=== PATIENT | male | born 1965 | race Caucasian/White ===

== ENCOUNTER 2017-10-14 10:57 | Outpatient (REF) | payer SELFPAY ==
[2017-10-17 10:11] LABS: HBs Antibody, Quant <3.1 mIU/mL; Hepatitis B Surface Ab Negative
[2017-10-17 10:41] LABS: Varicella IgG Antibody Positive
[2017-10-17 14:18] LABS: TB Interpretation Negative (NEGAT)
== END 2017-10-14 11:17 ==
LOC: LBO 10:57
PROVIDERS: PCP Nurse Practitioner Family; Visit Provider Nurse Practitioner Family
DX: Z11.1 Encounter for screening for respiratory tuberculosis (principal); Z01.84 Encounter for antibody response examination; Z02.1 Encounter for pre-employment examination
CPT/HCPCS: 36415; 86706; 86787; 86480

== ENCOUNTER 2021-02-23 02:14 | Outpatient (REF) | payer SELFPAY ==
[2021-02-24 09:06] LABS: HBs Antibody, Quant 174.6 mIU/mL (See Note); Hepatitis B Surface Ab Positive (See Note)
[2021-02-24 09:15] LABS: Hepatitis B Surface Ag Negative (Negative)
== END 2021-02-23 02:15 | disposition home or self-care (01) ==
LOC: LBO 02:14
PROVIDERS: PCP Nurse Practitioner Family; Visit Provider Nurse Practitioner Family
DX: Z02.1 Encounter for pre-employment examination (principal)
CPT/HCPCS: 36415; 86706; 87340

== ENCOUNTER 2024-02-22 09:27 | Emergency (ER) | payer OTHER, SELFPAY ==
[2024-02-22 09:36] VITALS: BP 181/92; PULSE 79; RESP 14; TEMP 36.6; O2SAT 97
--- NOTE | 2024-02-22 09:44 | ED.GENADUL_ITS ---
Discharge Plan Disposition Patient Disposition: Home Condition: Stable Discharge Details Clinical Impression: Cellulitis of right lower leg Primary Care Provider: None,None ED Provider: Livan Guillaume Home Meds and New Rx's Prescriptions: New cephalexin 500 mg capsule 500 mg PO QID 10 Days Qty: 40 0RF Continued (DME) Blood Glucose Test 1 EACH strip 1 ea Miscellaneous DAILY Qty: 90 Rx Instructions: PLEASE DISPENSE [employer] IS COVERED BY PT'S INSURANCE Dx: E11.9 T2DM to maintain HbA1c less than 7% aspirin [Aspir-81] 81 MG tablet,delayed release (DR/EC) 81 mg PO DAILY Atorvastatin Calcium 10 MG tablet 10 mg PO DAILY Qty: 90 3RF metformin 500 MG tablet 500 mg PO DAILY Qty: 90 3RF lisinopril-hydrochlorothiazide 1 EACH tablet 1 ea PO DAILY Qty: 90 3RF cholecalciferol (vitamin D3) 1,000 UNIT tablet 1,000 unit PO DAILY Qty: 90 3RF Discharge Instructions Instructions: Cephalexin, Cellulitis (Skin Infection), Adult ED Additional Instructions: You were seen in the emergency department for the cellulitis of your right lower leg due to a cut. I am starting you on an antibiotic called cephalexin sent to the pharmacy here at the hospital, please take it as directed, you should see significant improvement by day 3, if you develop fever or are not improving by day 3 please return to the ED to be reevaluated, please return for any severe increase in your leg swelling especially with signs of neurovascular compromise to the distal right lower leg. Please follow-up with your primary care provider, your blood pressure is high today and you have been on lisinopril in the past and may need to go back on this medication. Discharge Data Discharge Date/Time-TO BE ENTERED AT DEPARTURE: 02/22/24 10:01 HPI General Date/Time Provider Initiated Documentation: 02/22/24 09:44 . HPI Narrative: 58 year-old male presents to ED today by POV/ambulating with a chief complaint of cut to R green, now having some redness distal to the cut over the past few days. Quality described as mild redness, no radiation to fever, fluctuance swelling, purulent drainage, red streaking up the leg. Severity is described as mild. Palliating factors include nothing specific attempted. Provoking factors include nothing specific. 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 Patient not anticoagulated. Related Data Home Medications ?Medication ?Instructions ?Recorded ?Confirmed blood sugar diagnostic (Blood #90 strips 08/22/15 02/22/24 Glucose Test strips) aspirin 81 mg tablet,delayed 81 mg PO DAILY 12/19/15 02/22/24 release (Aspir-) cholecalciferol (vitamin D3) 25 1,000 unit PO DAILY #90 tab-caps 12/20/16 02/22/24 mcg (1,000 unit) tablet lisinopril 20 1 ea PO DAILY #90 tab-caps 12/20/16 02/22/24 mg-hydrochlorothiazide 25 mg tablet metformin 500 mg tablet 500 mg PO DAILY #90 tab-caps 12/20/16 02/22/24 cephalexin 500 mg capsule 500 mg PO QID cellulitis 10 days 02/22/24 #40 caps Previous Rx's ?Medication ?Instructions ?Recorded cholecalciferol (vitamin D3) 25 1,000 unit PO DAILY #90 tab-caps 12/20/16 mcg (1,000 unit) tablet lisinopril 20 1 ea PO DAILY #90 tab-caps 12/20/16 mg-hydrochlorothiazide 25 mg tablet metformin 500 mg tablet 500 mg PO DAILY #90 tab-caps 12/20/16 cephalexin 500 mg capsule 500 mg PO QID cellulitis 10 days 02/22/24 #40 caps Allergies Allergy/AdvReac Type Severity Reaction Status Date / Time venom-honey bee (bee venom Allergy Mild Other (See Unverified 02/22/24 09:42 (honey bee)) Comment) metoprolol AdvReac constipatio Unverified 02/22/24 09:41 n General Stated Complaint: Cellulitis LASHAY: 3 Review of Systems All systems reviewed & are unremarkable except as noted in HPI and below Exam Narrative Exam Narrative: GENERAL APPEARANCE: Well-nourished, non-toxic, awake and alert, atraumatic, no acute distress. SKIN: Warm, pink, dry, minor healing cut to the anterior proximal green of the right lower extremity, 3 cm distal to this there is some macular erythema diffusely to green with warmth to touch without fluctuance swelling or purulent drainage consistent with cellulitis, no lymphadenitis HEAD: Normocephalic, atraumatic, normal hair distribution for gender/age. EYES: Normal conjunctiva, no exudates on lids/lashes. ENT: Nares patent, no circumoral cyanosis, no facial swelling NECK: Supple, trachea midline, painless cervical ROM. LUNGS/CHEST: Non-labored respirations, normal A/P diameter, symmetrical expansion, no chest wall deformity HEART (CV/PV): No peripheral edema, no JVD. ABDOMEN: Soft, non-distended, no guarding. MSK: Normal ROM, no swelling/deformity to bilateral UEs or LEs, moving all extremities without weakness, no cyanosis, spine midline without tenderness, normal curvature. NEURO: Mental Status AAOx4 - alert to person, place, time, events No facial droop, no forehead involvement. Motor: No focal weakness - strength 5/5 in bilateral UEs and LEs, proximal and distal, symmetric. Sensory: sensation intact to light touch globally. Gait normal: patient ambulated without ataxia into ED room. PSYCH: euthymic, cooperative, pleasant, appropriate speech Course Vital Signs Vital signs: Vital Signs Temperature 36.6 C 02/22/24 09:36 Pulse 79 02/22/24 09:36 Respiratory Rate 14 02/22/24 09:36 Blood Pressure 181/92 H 02/22/24 09:36 Pulse Oximetry 97 02/22/24 09:36 Temperature 36.6 C 02/22/24 09:36 Temperature Source Oral 02/22/24 09:36 Pulse 79 02/22/24 09:36 Respiratory Rate 14 02/22/24 09:36 Blood Pressure 181/92 H 02/22/24 09:36 Blood Pressure Position Sitting 02/22/24 09:36 Pulse Oximetry 97 02/22/24 09:36 Oxygen Delivery Method Room Air 02/22/24 09:36 Oxygen Flow Rate 0 02/22/24 09:36 Pain Level 5 02/22/24 09:36 Medical Decision Making This dictation utilizes [id number] dictation software and may contain unedited grammatical errors. 58 year-old male presents to ED today by POV/ambulating with a chief complaint of cut to R green, now having some redness distal to the cut over the past few days. Quality described as mild redness, no radiation to fever, fluctuance swelling, purulent drainage, red streaking up the leg. Severity is described as mild. Palliating factors include nothing specific attempted. Provoking factors include nothing specific. Events leading up to the incident/Associated Symptoms: Patient works here in the [employer] department. Patients' medical history: History of diabetes mellitus but was able to correct his A1c with lifestyle choices, MICHELLE, atrial fibrillation, elevated blood pressure. Family and social history: Works here at the [employer] department. Pertinent exam findings / vital signs include minor healing cut to the anterior proximal green of the right lower extremity, 3 cm distal to this there is some macular erythema diffusely to green with warmth to touch without fluctuance swelling or purulent drainage consistent with cellulitis, no lymphadenitis, nontoxic and afebrile. Differential / pathologies of concern include cellulitis, unlikely sepsis. Diagnostic studies of: -None, discussed possibility for labs with the patient he would like to trial antibiotic for relief, he will return if any worsening for laboratory workup. Interventions of: -Rx for cephalexin. ED Course/Assessment/Plan: 58-year-old male has a mild right lower extremity cellulitis, wants to trial antibiotics for relief prior to any laboratory workup, he will return for any acute worsening with fever and lymphadenitis, recommend he follow-up with his PCP about his blood pressure. Findings not consistent with severe cellulitis, circumferential cellulitis, abscess, sepsis. Disposition of cellulitis of right lower leg. Patient verbalized understanding of the plan and return to ED criteria and engaged in shared decision making. Medical Records Medical records reviewed: Yes I reviewed the patient's medical records. Quality:[facility] Health Related Social Needs: No Data to Display PFSH All Active Problems (Updated 02/22/24 @ 09:53 by CORNELIA Mccord) Cellulitis of right lower leg (Acute) Employee exposure to body fluids (Acute) Encounter for screening for other viral diseases (Acute) Medical History (Updated 02/22/24 @ 09:53 by CORNELIA Mccord) HTN (hypertension) Adult BMI > 30 Nephrolithiasis L Type 2 diabetes mellitus Hepatic steatosis Sleep apnea Diverticulosis Surgical History Ureteroscopy, EHL, or Laser Lithotripsy (10/30/09) Dr Stoney Garcia ureteral stent Colonoscopy w/ Bx (10/09/15) Appendectomy (~2008) Family History Mother Essential hypertension Father Essential hypertension Atrial fibrillation Sister No problems noted. Sister No problems noted. Brother No problems noted. Social History Smoking/Tobacco Use Status: Never Smoking risk assessment performed?: Yes Alcohol Intake: current Alcohol Intake frequency: a few times a week Drug use: Never Substance use type: does not use Do you feel safe at home: Yes Do you feel safe in your relationship?: Yes
[2024-02-22 09:47] VITALS: BP 181/92; PULSE 79; RESP 14; TEMP 36.6; O2SAT 97
[2024-02-22 09:59] VITALS: BP 181/92
== END 2024-02-22 10:01 | disposition home or self-care (01) ==
LOC: ER 10:10
PROVIDERS: Emergency Provider Physician Assistant
DX: L03.115 Cellulitis of right lower limb (principal); I10 Essential (primary) hypertension; E11.9 Type 2 diabetes mellitus without complications
CPT/HCPCS: 99283

== ENCOUNTER 2024-02-23 18:54 | Observation (INO) | payer OTHER, SELFPAY ==
[2024-02-23 18:59] VITALS: BP 136/81; PULSE 90; RESP 19; TEMP 36.6; O2SAT 94
--- OUTSIDE RECORDS SUMMARY | 2024-02-23 19:15 | XMS_ITS | Clinical Summary ---
Author Organization [facility] Address [address] [place] [address] Care Team Providers Care Display Director Name Role Phone Jason Maya MD Primary Care Provider Unav ailable Social History Tobacco Use Types Packs/Day Years Used Date Smoking Tobacco: Never Assessed Sex and Gender Information Value Date Recorded Sex Assigned at Not on file Legal Sex Male 18:34 EST Gender Identity Not on file Sexual Orientation Not on file Plan of Treatment Health Maintenance Due Date Last Done Comments Hepatitis C Screen 1965 Hepatitis B Vaccine (1 of 3 - 19+ 3-dose series) 09/23 COVID-19 Vaccine ( season) 2023 Care Teams Display Director Relationship Specialty Start Date End Date Jason Maya MD PCP - General 12/23/14
--- OUTSIDE RECORDS SUMMARY | 2024-02-23 19:15 | XMS_ITS | Referral Summary ---
Author Organization [facility] Address [address] [place] [address] Care Team Providers Care Configuration Analyst Name Role Phone Jason Maya MD Primary Care Provider Unav ailable Social History Tobacco Use Types Packs/Day Years Used Date Smoking Tobacco: Never Assessed Sex and Gender Information Value Date Recorded Sex Assigned at Not on file Legal Sex Male 18:34 EST Gender Identity Not on file Sexual Orientation Not on file Plan of Treatment Not on file Care Teams Configuration Analyst Relationship Specialty Start Date End Date Jason Maya MD PCP - General 12/23/14
--- OUTSIDE RECORDS SUMMARY | 2024-02-23 19:15 | XMS_ITS | Encounter Summary ---
Author Organization [facility] Address [address] [place] [address] Care Team Providers Care Pool Servicer Name Role Phone Unavailable Primary Care Provider Unavailabl e Encounter Details Date Type Department Care Team (Late st Contact Info) Description 05/09/2008 Before PRISM Converted Visit ([facility]) [facility] - [facility] conversion [address] [place] [address] Kenroy Magana MD [address] [place] [address] Social History Tobacco Use Types Packs/Day Years Used Date Smoking Tobacco: Never Assessed Sex and Gender Information Value Date Recorded Sex Assigned at Not on file Legal Sex Male 18:34 EST Gender Identity Not on file Sexual Orientation Not on file documented as of this encounter Plan of Treatment Not on file documented as of this encounter Procedures Procedure Name Priority Date/Time Associated Diagnosis Comments SURGICAL PATHOLOGY Routine 05/09/2008 0:00 EDT documented in this encounter Results * SURGICAL PATHOLOGY (05/09/2008 0:00 EDT) Pathology Report: SURGICAL PATHOLOGY REPORT ? Reports generated via electronic interface contain original data; ? however they are lacking the format of the original report. ? Caution should be taken when reading/interpreti ng unformatted reports. ? Name: ? PASTULA, GRAY ? Accession #: ? [id number] ? : ? 1965 (Age: 42) ??M ? Collect Date: ? 05/09/2008 ? Location: ? [facility] ? Receive Date: ? 05/10/2008 ? Provider: KENROY MAGANA MD ? Copy to: MAY L EARL MD ? JOSSELINE ZIOBROWSKI MD ? Final Pathologic Diagnosis: ? Soft tissue, intraabdominal, excision biopsy: ? - Adipose tissue with organizing acute and chronic serositis. ??See comment. ? Comment: ? The specimen was examined by two different prosectors and no appendix was ?? identified. ??These findings were discussed with Dr. Kenroy Magana who felt ?? this correlated with the clinical picture. (Dr. Page)/m ? Document reviewed and electronically signed by: ? Júnior Peters MD ? Report ??Date: 05/14/2008 17:16 ? By the signature above, the attending physician certifies that he/she has ? personally conducted a gross and/or microscopic examination of the described ? specimens and rendered or confirmed the above diagnosis. ? Specimen(s) Received: ? Appendix ? Clinical History: ? Abd pain ? Gross Description: ? Received in formalin labelled Pastula, Gray and appendix are two ? fragments of ruggiero-yellow lobular adipose tissue with patchy hemorrhage and ? regions of fibrinopurulent exudate. ??These fragments measure 5.0 x 3.0 x 1.2 cm and 4.8 x 2.0 x 1.2 cm. ??No definitive appendix is identified and serial ? sectioning through the fat fails to reveal any lumen. ??At one aspect of one of ?? the fragments, there is a 1.5 x 0.5 x 0.3 cm area of ruggiero-white firm tissue. ? The resection margins around this area are black inked. ??Two tour sales representative ? sections are submitted in one cassette. ??(Dr. House)/lissett ? End of Report ? TERRY BRISENO 05/09/2008 05/10/2008 8:3 9 EDT us Kenroy Magana MD PATHOLOGY ORDERABLES Final Result Performing Organization Address City/State/[facility] Co de Phone Number [facility] [address] [phone] documented in this encounter Visit Diagnoses Not on filedocumented in this encounter
--- OUTSIDE RECORDS SUMMARY | 2024-02-23 19:15 | XMS_ITS | Encounter Summary ---
[facility] Address [facility] [place] [address] Care Team Providers Care Booth Supervisor Name Role Phone Ahmet Erickson MD Primary Care Provider U navailable Reason for Visit * Consultation (Routine) - Closed Specialty Diagnoses / Procedures Referred By Contac t Referred To Contact Sleep Center Diagnoses MICHELLE (obstructive sleep apnea) Snoring Daytime sleepiness Procedures PRG POLYLSOM 6+ YRS SLEEP W CPAP W 4+ ADDL ESTHELA ATTND Lexis Mckinnon, REA [facility] [place] [address] [facility] Sleep Medicine [address] [place] [address] Referral ID Status Reason Start Date Expiration Date V isits Requested Visits Authorized [id number] Closed Test Only 11/06/2015 11/05/2016 1 1 Encounter Details Date Type Department Care Team (Late st Contact Info) Description 12/01/2015 8:30 PM EDT Procedure visit [facility] [address] [place] [id number] Jeaneth Gutiérrez MD [facility] [place] [address] MICHELLE (obstructive sleep apnea) (Primary Dx) Social History Tobacco Use Types Packs/Day Years Used Date Smoking Tobacco: Never Alcohol Use Standard Drinks/Week Comments Yes 14 (1 standard drink = 0.6 oz pu re alcohol) Few cans of beer per night Sex and Gender Information Value Date Recorded Sex Assigned at Not on file Gender Identity Not on file Sexual Orientation Not on file documented as of this encounter Progress Notes * Jeaneth Gutiérrez MD - 12/01/2015 8:30 PM EDT Images from the original note were not included. Overnight Polysomnogram Report - PAP Titration Trial History Of Present Illness: Roland Gage was referred for a full night CPAP titration study inthe setting of known severe MICHELLE, diagnosed in 2005, who currently is having issues with equipment failure. Notes suggest he was using CPAP 13cm for many years with good effect until more recently. Polysomnography: The patient's sleep was evaluated for one night at the [facility]. Sleep was monitored in accordance with recommended AASM guidelines. The recording also included oral/nasal airflow, chest and abdominal respiratory effort, nasal pressure, single channel EKG, intercostalEMG, bilateral tibialis EMG, and oxygen saturation (by pulse oximeter). Type of Positive Pressure Utilized: CPAP Report - Sleep/EEG: CPAP titration was performed from 22:22 to 6:00 yielding a total sleep time of 393 minwith all stages of sleep seen. Sleep efficiency was mildly reduced. REM accounted for 23% of TST. He slept lateral and supine. No major EEG abnormalities were noted. - Respiratory: CPAP was titrated from a pressure of 6cm to 9cm. Events were generally very limited in NREM sleep. Ongoing evidence of upper airway obstruction and cyclic oxygen desaturations were noted in REM sleep, improved as the pressures increased. On the final pressure of 9 cm, the residual AHI was 4.8 with a min SpO2 of 87% observed. The mask used was a Wisp nasal size large without chinstrap. Intermittent elevations in leak (prolonged but limited to 5-15 lpm increase) were seen - it is unclear if this was due to mouth opening ormask leak. - EKG: Normal sinus rhythm. - EMG: Unremarkable - COMMENTS: Head of bed: flat Technical quality of the study: good Post study questionnaire: The patient reported sleeping better and feeling slightly better on the morning after testing. Assessment: Roland Gage is a 50 yo male who presents for a CPAP titration in the setting of known severe MICHELLE. CPAP of 9cm resolved most of the obstructive events with some occasional events noted in REM supine sleep. A nasal mask was used during the night; leaks were generally well controlledwith some increases noted at time (unclear if due to mask or mouth opening.) No chinstrap was applie d. Moving forward, I would favor a trial of AUTOCPAP 9 - 16cm with the mask of his preference. Lower pressures could be considered if he has any tolerance issues. Recommendations: AUTOCPAP 9 - 16cm with mask of his preference +/- chinstrap; Lower pressures could be considered if there is any report of pressure intolerance. Follow up in the CPAP clinic to assess his response to the new equipment about 4-6 weeks after set up. * I called and left uJde a detailed message on his home line about the study results. Orders will be forwarded and follow up scheduled. Jeaneth Gutiérrez MD [facility] REPORT of TITRATION Polysomnography Patient Name: Roland Gage Study Date: 12/01/2015 Age & Sex: 50 y.o. Male Height: 5'11.5 Date of : 1965 Weight: 257.8 lbs BMI: 35.5 Referring Provider: Recording Technologist: ZACK ARRIAZA Scoring Technologist: ZACK MANN Sleep Fellow: Sleep Specialist: Scoring Technologist Comments: ECG: NSR Ectopy: PVC Description of Study: Diagnostic polysomnography was performed utilizing frontal, central & occipital EEG, EOG, submentalis EMG, oronasal thermocouple, nasal pressure, ECG, thoracic and abdominalinductance plethysmography, right and left anterior tibialis EMG, snore sensor, and pulse oximetry according to AASM established guidelines. Study Details & Sleep Architecture Diagnostic Start Time (Lights Off): 22:22:57 Total Recording Time: 458.0 min Diagnostic End Time (Lights On): 06:00:58 Total Sleep Time (minutes): 393.0 Total Num. of Stage Shifts: 78 Total Sleep Time (hrs:min): 6:33.0 Total Num. of Awakenings: 17 Sleep Onset Latency: 14.0 min Total Num. of Trans. to N1: 20 Sleep Efficiency: 85.8% Total Num. of REM Periods: 6 Stage Results: Time (minutes) %TST Latency (minutes) WASO: 51.0 - - N1: 25.5 6.5 0.0 N2: 208.0 52.9 2.5 N3: 68.5 17.4 35.0 REM: 91.0 23.2 61.5 55.5 (minus wake) Arousal Counts: NREM REM Total Spontaneous: 62 (12.3/hr) 20 (13.2/hr) 82 (12.5/hr) Sum of All Arousals: 71 (14.1/hr) 25 (16.5/hr) 96 (14.7/hr) Spontaneous arousals include only EEG arousals not associated with a respiratory event or PLM. Body Position: Supine Non-Supine Non-REM: 146.5 min 155.5 min REM: 63.5 min 27.5 min Total Sleep: 210.0 min (53.4%) 183.0 min (46.6%) Respiratory Events Apneas Obstructive Mixed Central Total Apneas Total Count: 0 0 0 0 Mean Duration (sec): 0 0 0 - Longest Duration (sec): 0 0 0 - Index (REM/NREM): 0.0 / 0.0 0.0 / 0.0 0.0 / 0.0 - Index (Sup./Non-Sup.): 0.0 / 0.0 0.0 / 0.0 0.0 / 0.0 - Index (Total): 0.0 0.0 0.0 0.0 Hypopneas & RERAs Hypopnea Definitions: Hypopnea* CMS Hypopnea 3% desat nancie. Hypopneas All RERA Total Count: 7 40 47 0 Mean Duration (sec): 30.2 22.6 - 0 Longest Duration (sec): 60.2 38.8 - 0 Index (REM/NREM): 4.6 / 0.0 15.2 / 3.4 19.8 / 3.4 0.0 / 0.0 Index (Sup./Non-Sup.): 0.9 / 1.3 9.4 / 2.3 10.3 / 3.6 0.0 / 0.0 Index (Total): 1.1 6.1 7.2 0.0 *CMS-defined hypopneas include only hypopneas with a >=4% oxygen desaturation. Includes hypopneas with an arousal or with a 3%-4% desaturation. CMS Hypopneas not included. Periodic Breathing Total Sleep Time Time (minutes) 0.0 Time (%Sleep Time) 0.0 AHI: Includes all apneas & all hypopneas associated with an arousal or a >= 3% desaturation. Supine Non-Sup. REM NREM Total Count: 36 11 30 17 47 Index (events/hr): 10.3 3.6 19.8 3.4 AHI = 7.2 CMS AHI: Includes all apneas & only hypopneas associated with a >= 4% desaturation. Supine Non-Sup. REM NREM Total Count: 3 4 7 0 7 Index (events/hr): 0.9 1.3 4.6 0.0 CMS = 1.1 Obstructive AHI: Includes obstructive & mixed apneas as well as all hypopneas. Excludes centralapneas and RERAs. Supine Non-Sup. REM NREM Total Count: 36 11 30 17 47 Index (events/hr): 10.3 3.6 19.8 3.4 OAHI = 7.2 RDI: Includes all apneas, all hypopneas, all RERAs, and all ???Unsure??? events. Supine Non-Sup. REM NREM Total Count: 36 11 30.0 17.1 47 Index (events/hr): 10.3 3.6 19.8 3.4 RDI = 7.2 Oxygen Saturation Details (Overall) SpO2 Awake NREM REM All Sleep GREGORIO Report Sleep Mean: 97% 96% 95% 96% 3% GREGORIO 2.6 3.1 Minimum: - 92% 87% 87% 4% GREGORIO 0.9 1.1 SpO2 Awake (minutes) NREM (minutes) REM (minutes) All Sleep (minutes) <=90% 0.0 0.0 1.2 1.2 <=89% 0.0 0.0 0.6 0.6 <=88% 0.0 0.0 0.2 0.2 90-99% 58.1 301.9 89.8 391.7 80-89.9% 0.0 0.0 0.6 0.6 79-79.9% 0.0 0.0 0.0 0.0 60-69.9% 0.0 0.0 0.0 0.0 50-59.9% 0.0 0.0 0.0 0.0 <=50% 0.0 0.0 0.0 0.0 Cardiac Details Heart Rate (bpm) Total Study NREM REM All Sleep Minimum - 50 49 49 Maximum 69 69 69 69 Mean - 58 59 58 Limb Movement Details Periodic Limb Movements Total PLMs (and Index) PLMs w/ Arousals (and Index) Wake (after ???Lights Off???): 0 (0.0/hr) 0 (0.0/hr) NREM: 0 (0.0/hr) 0 (0.0/hr) REM: 0 (0.0/hr) 0 (0.0/hr) Total Sleep: 0 (0.0/hr) 0 (0.0/hr) Pressure Analysis Time (hh:mm:ss) IP/EP/O2 TST Supine Non-Sup. REM Non-REM REM Sup. 6/6/0 7/7/0 8/8/0 9/9/0 1:01:06 2:31:12 1:09:49 1:50:53 0:24:30 0:49:00 1:07:37 1:08:53 0:36:36 1:42:12 0:02:12 0:42:00 0:05:36 0:28:42 0:20:49 0:35:53 0:55:30 2:02:30 0:49:00 1:15:00 0:00:00 0:09:00 0:18:37 0:35:53 Respiratory Event Counts IP/EP/O2 Obstr. Ap. Mixed Ap. Central Ap. Hypopneas* RERAs 6/6/0 7/7/0 8/8/0 9/9/0 0 0 0 0 0 0 0 0 0 0 0 0 7 10 11 19 0 0 0 0 *Includes all types of hypopneas: those associated with arousals or >=3% desaturations. Respiratory Indices (events per hour) IP/EP/O2 OAI TIFFANIE JEFF HI* RDI 6/6/0 7/7/0 8/8/0 9/9/0 0.0 0.0 0.0 0.0 0.0 0.0 0.0 0.0 0.0 0.0 0.0 0.0 6.9 4.0 9.5 10.3 6.9 4.0 9.5 10.3 *Includes all types of hypopneas: those associated with arousals or >=3% desaturations. Respiratory Indices (events per hour) IP/EP/O2 AHI Supine Non-Sup. REM Non-REM 6/6/0 7/7/0 8/8/0 9/9/0 6.9 4.0 9.5 10.3 9.8 4.9 8.9 15.7 4.9 3.5 27.3 1.4 32.1 16.7 17.3 21.7 4.3 1.0 6.1 4.8 *Includes all types of hypopneas: those associated with arousals or >=3% desaturations. Oxygen Saturations IP/EP/O2 Minimum Mean 6/6/0 7/7/0 8/8/0 9/9/0 88 90 89 87 95 96 96 96 Graphs CPAP/Bi-Level PLMs Body Position * Dedra Min - 12/01/2015 8:30 PM EDT Pt will call back to schedule follow up. documented in this encounter Plan of Treatment Not on file documented as of this encounter Visit Diagnoses Diagnosis MICHELLE (obstructive sleep apnea)- Primary Obstructive sleep apnea (adult) (pediatric) documented in this encounter Care Teams Booth Supervisor Relationship Specialty Start Date End Date Ahmet Erickson MD PCP - General 12/30/09 11/16/16 documented as of this encounter
--- OUTSIDE RECORDS SUMMARY | 2024-02-23 19:15 | XMS_ITS | Encounter Summary ---
Author Organization Formerly [facility], Later [facility] Address [facility] [place] [address] Care Team Providers Care Senior Principal Process Engineer Name Role Phone Ahmet Erickson MD Primary Care Provider U navailable Reason for Visit * Auth/Cert Specialty Diagnoses / Procedures Referred By Contac t Referred To Contact Diagnoses LLQ abdominal pain Procedures PRO COLONOSCOPY, DIAGNOSTIC COLONOSCOPY, DIAGNOSTIC Referral ID Status Reason Start Date Expiration Date Visits Re quested Visits Authorized [id number] 1 1 Encounter Details Date Type Department Care Team (Latest Contact Info) Description 10/09/2015 6:39 AM EDT - 10/09/2015 10:15 AM EDT Hospital Encounter [place] [address] [facility] [place] [address] Discharge Disposition: Home Social History Tobacco Use Types Packs/Day Years Used Date Smoking Tobacco: Never Alcohol Use Standard Drinks/Week Comments Yes 14 (1 standard drink = 0.6 oz pu re alcohol) Few cans of beer per night Sex and Gender Information Value Date Recorded Sex Assigned at Not on file Gender Identity Not on file Sexual Orientation Not on file documented as of this encounter Last Filed Vital Signs Vital Sign Reading Time Taken Comments Blood Pressure 151/96 10/09/2015 9:14 AM EDT Pulse 59 10/09/2015 9:14 AM EDT Temperature - - Respiratory Rate 16 10/09/2015 9:14 AM EDT Oxygen Saturation 99% 10/09/2015 9:14 AM EDT Inhaled Oxygen Concentration - - Weight 112 kg (247 lb) 10/09/2015 7:36 AM EDT Height - - Body Mass Index 33.5 09/16/2015 8:03 AM EDT documented in this encounter Discharge Instructions * Attachments The following attachments cannot be sent through Care Everywhere. * COLONOSCOPY : POST-OP (TURKISH) documented in this encounter Medications at Time of Discharge Medication Sig Dispensed Refills Start Date End Date lisinopril (PRINIVIL;ZESTRIL) 20 mg Tablet Take 20 mg by mouth daily. metFORMIN (GLUCOPHAGE) 500 mg Tablet Take 500 mg by mouth daily. documented as of this encounter H&P Notes * Lalitha Sawyer MD - 10/09/2015 7:43 AM EDT Patient Name: Roland Gage Patient Age: 50 y.o. Birthdate: 1965 Admit date: 10/09/2015 Attending Physician: Lalitha Sawyer MD Gastroenterology and Hepatology Pre-Procedure History and Physical Exam Procedure: Colonoscopy: Indication: Abdominal pain and diarrhea There is no problem list on file for this patient. Problems: DM2, MICHELLE EXAM: HEENT: Airway examined, oropharynx clear Mallampati Score: III (soft palate, base of uvula visible) LUNGS: Clear to auscultation HEART: Regular rate and rhythm, normal S1, S2 ABDOMEN: Normal bowel sounds, soft, non tender, non distended, A/P Proceed with the planned endoscopic procedure. ASA 2 - Patient with mild systemic disease with no functional limitations Sedation Plan: moderate (conscious sedation) Risks and benefits of the procedure explained to the patient. Consent signed. documented in this encounter Plan of Treatment Not on file documented as of this encounter Procedures Procedure Name Priority Date/Time Associated Diagnosis Comments SPECIMEN TO PATHOLOGY Routine 10/09/2015 9:14 AM EDT SPECIMEN TO PATHOLOGY Routine 10/09/2015 9:14 AM EDT SPECIMEN TO PATHOLOGY Routine 10/09/2015 9:14 AM EDT SPECIMEN TO PATHOLOGY Routine 10/09/2015 9:14 AM EDT SPECIMEN TO PATHOLOGY Routine 10/09/2015 9:14 AM EDT SPECIMEN TO PATHOLOGY Routine 10/09/2015 9:14 AM EDT SURGICAL PATHOLOGY REPORT Routine 10/09/2015 9:13 AM EDT COLONOSCOPY, POLYPECTOMY, REMOVAL LESION BY SNARE (WRVU 4.57) 10/09/2015 8:05 AM EDT Hepatic steatosis Chronic abdominal pain COLONOSCOPY Routine 10/09/2015 7:54 AM EDT documented in this encounter Results * Specimen to Pathology (surgical or derm) (10/09/2015 9:14 AM EDT) AP Specimen 10/09/2015 9:14 AM EDT 10/09/2015 9:[address] [facility] - 10/09/2015 9:14 AM EDT Specimen requisition ordered. ??Separate Pathology report to follow Lalitha Sawyer MD PATHOLOGY/CYTOLOGY O [facility] [place] [address] * Specimen to Pathology (surgical or derm) (10/09/2015 9:14 AM EDT) AP Specimen 10/09/2015 9:14 AM EDT 10/09/2015 9:[address] [facility] - 10/09/2015 9:14 AM EDT Specimen requisition ordered. ??Separate Pathology report to follow Lalitha Sawyer MD PATHOLOGY/CYTOLOGY O [place] Performing Organization Address [facility] Co de Phone Number [facility] [place] [address] * Specimen to Pathology (surgical or derm) (10/09/2015 9:14 AM EDT) AP Specimen 10/09/2015 9:14 AM EDT 10/09/2015 9:[address] [facility] - 10/09/2015 9:14 AM EDT Specimen requisition ordered. ??Separate Pathology report to follow Lalitha Sawyer MD PATHOLOGY/CYTOLOGY [place] Performing Organization Address [facility] [place] [address] * Specimen to Pathology (surgical or derm) (10/09/2015 9:14 AM EDT) AP Specimen 10/09/2015 9:14 AM EDT 10/09/2015 9:14 AM EDT [facility] - 10/09/2015 9:14 AM EDT Specimen requisition ordered. ??Separate Pathology report to follow Lalitha Sawyer MD PATHOLOGY/CYTOLOGY [facility] [place] Performing Organization Address [facility] [place] [address] * Specimen to Pathology (surgical or derm) (10/09/2015 9:14 AM EDT) AP Specimen 10/09/2015 9:14 AM EDT 10/09/2015 9:14 AM EDT [facility] - 10/09/2015 9:14 AM EDT Specimen requisition ordered. ??Separate Pathology report to follow Lalitha Sawyer MD PATHOLOGY/CYTOLOGY O [place] Performing Organization Address [facility] [place] [address] * Specimen to Pathology (surgical or derm) (10/09/2015 9:14 AM EDT) AP Specimen 10/09/2015 9:14 AM EDT 10/09/2015 9:14 AM EDT [facility] - 10/09/2015 9:14 AM EDT Specimen requisition ordered. ??Separate Pathology report to follow Lalitha Sawyer MD PATHOLOGY/CYTOLOGY O [facility] [place] [address] * Surgical Pathology Report (10/09/2015 9:13 AM EDT) Final Diagnosis [id number] ? Location: 4T; EA13; A The signing pathologist has (i) examined the relevant preparation(s) for the specimen(s) and (ii) rendered or confirmed the diagnosis(es). . ?Surgical Pathology DIAGNOSIS A - Right colon, biopsy: Colonic mucosa with lymphoid aggregate. B - Transverse colon, polypectomy: Polypoid colonic mucosa. C - ??By at 50 cm, biopsy: Colonic mucosa with lymphoid aggregate and focal active colitis. D - Left colon, biopsy: Colonic mucosa with lymphoid aggregate. E - Sigmoid colon, polypectomy: Hyperplastic polyp. F - Rectum, polypectomy: Hyperplastic polyp. CR-PX Electronically signed by: ??Isa GRANDA PhD, Coleman Barney Verified: ??10/19/2015 ?Pathologist DISCUSSION ??Whole slide scan: E2, F1 CLINICAL INFORMATION Specimen Submitted: A - Random right colon biopsies B - Transverse colon polyp 3mm C - By at 50cm - congested mucosa D - Random left colon biopsies E - Sigmoid colon polyps (2), 3-4mm F - Rectal polyp 2mm Clinical History: Abdominal pain LUQ and loose stools, rule out microscopic colitis Clinical Diagnosis: Same SPECIMEN PROCESSING A - Labeled/Fixativ e: Random right colon biopsies, formalin. Quantity/Size: Five, 0.3 cm. Tissue Description: Soft, dougherty-pink tissue. Sections/Proces sing: (T1) . SPECIMEN PROCESSING B - Labeled/Fixativ e: Transverse colon polyp 3 mm, formalin. Quantity/Size: Two, 0.3 cm. Tissue Description: Soft, dougherty-pink tissue. Sections/Proces sing: (T1) C - Labeled/Fixativ e: By at 50 cm-congested mucosa, formalin. Quantity/Size: Three, 0.3 cm. Tissue Description: Soft, dougherty-pink tissue. Sections/Proces sing: (T1) D - Labeled/Fixativ e: Random left colon biopsies, formalin. Quantity/Size: Four, 0.3 cm. Tissue Description: Soft, dougherty-pink tissue. Sections/Proces sing: (T1) E - Labeled/Fixativ e: Sigmoid colon polyps (2), 3-4 mm, formalin. Quantity/Size: Four, 0.2-1.1 cm. Tissue Description: Dougherty-pink soft tissues, the largest polypoid. Sections/Proces sing: Totally submitted with small fragments and E1 in the larger polypoid fragment in E2. ??(T2) ??pps F - Labeled/Fixativ e: Rectal polyp 2 mm, formalin. Quantity/Size: Single, 0.2 cm. Tissue Description: Soft, dougherty-pink tissue. Sections/Proces sing: Totally submitted. (T1) 10/19/2015 12:[address] [facility] GI Biopsy 10/09/2015 9:13 AM EDT 10/09/2015 9:13 AM EDT GI Biopsy 10/09/2015 9:13 AM EDT 10/09/2015 9:13 AM EDT GI Biopsy 10/09/2015 9:13 AM EDT 10/09/2015 9:13 AM EDT GI Biopsy 10/09/2015 9:13 AM EDT 10/09/2015 9:13 AM EDT GI Biopsy 10/09/2015 9:13 AM EDT 10/09/2015 9:13 AM EDT GI Biopsy 10/09/2015 9:13 AM EDT 10/09/2015 9:13 AM EDT Lalitha Sawyer MD PATHOLOGY/CYTOLOGY O [facility] [place] [address] * COLONOSCOPY (10/09/2015 7:54 AM EDT) COLONOSCOPY [facility] Endoscopy ___ Procedure Date: 10/09/2015 7:54 AM ? Patient Name: Roland Gage ? Date of : 1965 ? Age: 50 ? Order #: [id number] ? Instrument Name: [id number] ? ___ Procedure: ? Colonoscopy Indications: ? Abdominal pain in the left upper ? quadrant, Clinically significant ? diarrhea of unexplained origin Providers: ? Lalitha Sawyer MD, Katrina Biggs ? Rosalie Jordan, Visitor Services Technician Referring MD: ?Ahmet Erickson MD, Halina ? Jolynn Schneider MD Medicines: ? Midazolam 4 mg IV, Fentanyl 150 ? micrograms IV, Diphenhydramine 25 mg ? IV Complications: ? No immediate complications. ___ Procedure: ? The procedure, indications, benefits, ? risks and alternatives were explained ? to the patient. Specifically ? discussed were potential ? complications including, but not ? limited to, bleeding, perforation, ? infection, missing a cancer, and ? adverse medication reactions. The ? patient was placed in the left ? lateral decubitus position, and a ? digital rectal exam was performed. ? The Colonoscope was inserted in the ? anus and under direct visualization, ? advanced to the cecum, identified by ? appendiceal orifice and ileocecal ? valve. Careful inspection was made as ? the colonoscope was withdrawn. The ? colonoscopy was performed without ? difficulty. The patient tolerated the ? procedure well. The quality of the ? bowel preparation was good. The ? quality of the bowel preparation was ? evaluated using the BBPS ([place] ? Bowel Preparation Scale) with scores ? of: Right Colon = 3, Transverse Colon ? = 3 and Left Colon = 3 (entire mucosa ? seen well with no residual staining, ? small fragments of stool or opaque ? liquid). The total BBPS score equals ? 9. ? Findings: ? The perianal exam findings include non-thrombosed ? external hemorrhoids. ? A 3 mm polyp was found in the transverse colon. The ? polyp was sessile. The polyp was removed with a cold ? biopsy forceps. Resection and retrieval were complete. ? A 4 mm polyp was found in the sigmoid colon. The ? polyp was sessile. The polyp was removed with a cold ? snare. Resection and retrieval were complete. ? A 3 mm polyp was found in the sigmoid colon. The ? polyp was sessile. The polyp was removed with a cold ? biopsy forceps. Resection and retrieval were complete. ? A 2 mm polyp was found in the rectum. The polyp was ? sessile. The polyp was removed with a cold biopsy ? forceps. Resection and retrieval were complete. ? An area of mildly congested mucosa was found at the ? splenic flexure. This was biopsied with a cold ? forceps for histology. ? The mucosa in the remainder of the colon was ? otherwise normal. Biopsies for histology were taken ? with a cold forceps from the right colon and left ? colon for evaluation of microscopic colitis. ? A few small-mouthed diverticula were found in the ? sigmoid colon, at the splenic flexure and in the ? transverse colon. ? Non-bleeding external and internal hemorrhoids were ? found during retroflexion. The hemorrhoids were mild. ? Impression: ?- One 3 mm polyp in the transverse ? colon. Resected and retrieved. ? - One 4 mm polyp in the sigmoid ? colon. Resected and retrieved. ? - One 3 mm polyp in the sigmoid ? colon. Resected and retrieved. ? - One 2 mm polyp in the rectum. ? Resected and retrieved. ? - Mildly congested mucosa at the ? splenic flexure. Biopsied. ? - Otherwise normal colonic mucosa. ? Biopsied for microscopic colitis. ? - Diverticulosis in the sigmoid ? colon, at the splenic flexure and in ? the transverse colon. ? - Non-bleeding external and internal ? hemorrhoids. Recommendation: ?- High fiber diet indefinitely. ? - Await pathology results. ? - If the pathology report reveals ? adenomatous tissue, then repeat the ? colonoscopy for surveillance based on ? pathology results. ? - If the pathology report reveals no ? adenomatous tissue, then repeat the ? colonoscopy for screening purposes in ? 10 years. ? _ Lalitha Sawyer MD 10/09/2015 9:28:07 AM Number of Addenda: 0 Note Initiated On: 10/09/2015 7:54 AM PROVATION 10/09/2015 7:54 AM EDT Ahmet Erickson MD GENERAL SURGICAL ORDERABLES PROVATION documented in this encounter Visit Diagnoses Not on filedocumented in this encounter Administered Medications Inactive Administered Medications - up to 3 most recent administrations Medication Order MAR Action Action Date Dose Rate Site lactated ringers infusion 100 mL/hr, Intravenous, CONTINUOUS, Starting on Gina 10/09/15 at 0800, Until Gina 10/09/15 at 1015, Endoscopy (Day of Procedure) New Bag 10/09/2015 7:41 AM EDT 100 mL/hr 100 mL/hr documented in this encounter Active and Recently Administered Medications Times are shown in EDT. Continuous Medication Order 10/07/2015 10/08/2015 10/09/2015 lactated ringers infusion (CANCELED) 100 mL/hr, Intravenous, CONTINUOUS, Starting on Gina 10/09/15 at 0800, Until Gina 10/09/15 at 1015, Endoscopy (Day of Procedure) 0741 (New Bag - Prov ider: Giselle Mercedes RN) PRN Medication Order 10/07/2015 10/08/2015 10/09/2015 diphenhydrAMINE (BENADRYL) injection (CANCELED) ONCE PRN, Starting on Gina 10/09/15 at 0808, Until Gina 10/09/15 at 1216, Intra-Operative (Intra-Procedure), Routine 0808 (Given - Provid er: Katrina Jordan RN) fentaNYL 50 mcg/mL multi-dose injection (CANCELED) ONCE PRN, Starting on Gina 10/09/15 at 0808, Until Gina 10/09/15 at 1216, Intra-Operative (Intra-Procedure), Routine 0808 (Given - Provid er: Katrina Jordan RN)0813 (Given - Provider: Katrina Jordan RN)0823 (Given - Provider: Katrina Jordan RN) midazolam (PF) (VERSED) 1 mg/mL multi-dose injection (CANCELED) ONCE PRN, Starting on Gina 10/09/15 at 0808, Until Gina 10/09/15 at 1216, Intra-Operative (Intra-Procedure), Routine 0808 (Given - Provid er: Katrina Jordan RN)0813 (Given - Provider: Katrina Jordan RN)0822 (Given - Provider: Katrina Jordan RN) documented in this encounter Care Teams Senior Principal Process Engineer Relationship Specialty Start Date End Date Ahmet Erickson MD PCP - General 12/30/09 11/16/16 documented as of this encounter
--- OUTSIDE RECORDS SUMMARY | 2024-02-23 19:15 | XMS_ITS | Encounter Summary ---
Author Organization [facility] [place] [address] Care Team Providers Care Aperture Mask Etcher Name Role Phone Ahmet Erickson MD Primary Care Provider U navailable Reason for Referral * Consultation (Routine) - Closed Specialty Diagnoses / Procedures Referred By Contac t Referred To Contact Sleep Center Diagnoses MICHELLE (obstructive sleep apnea) Snoring Daytime sleepiness Procedures PRG POLYLSOM 6+ YRS SLEEP W CPAP W 4+ ADDL ESTHELA ATTND Lexis Mckinnon, MILLINERY TEACHER [facility] [place] [address] [facility] Sleep Medicine [address] [place] [address] Referral ID Status Reason Start Date Expiration Date V isits Requested Visits Authorized [id number] Closed Test Only 11/06/2015 11/05/2016 1 1 Reason for Visit * Consultation (Routine) - Closed Specialty Diagnoses / Procedures Referred By Contac t Referred To Contact Sleep Center Diagnoses pt with h/o sleep apnea on cpap with concern about it fitting, worn down equipment Merissa Clemons, MILLINERY TEACHER [address] [facility] [place] [address] [place] [address] [facility] Sleep Medicine [address] [place] [address] Referral ID Status Reason Start Date Expiration Date V isits Requested Visits Authorized [id number] Closed Consult Only [facility] 08/26/2015 08/25/2016 1 1 Encounter Details Date Type Department Care Team (Late st Contact Info) Description 11/06/2015 3:00 PM EDT Office Visit [facility] [address] [place] [address] Lexis Mckinnon APRN MICHELLE (obstructive sleep apnea); Snoring; Daytime sleepiness Social History Tobacco Use Types Packs/Day Years [...] Sign Reading Time Taken Comments Blood Pressure 126/84 11/06/2015 2:44 PM EDT Pulse 66 11/06/2015 2:44 PM EDT Temperature - - Respiratory Rate - - Oxygen Saturation 98% 11/06/2015 2:44 PM EDT Inhaled Oxygen Concentration - - Weight 115.8 kg (255 lb 6.4 oz) 11/06/2015 2:44 PM EDT Height 181.6 cm (5' 11.5) 11/06/2015 2:44 PM ED T Body Mass Index 35.12 11/06/2015 2:44 PM EDT documented in this encounter Progress Notes * Lexis Mckinnon APRN - 11/06/2015 3:00 PM EDT Sleep Medicine Consultation Note HPI: Roland Gage is a 50 y.o. male seen at the request of Merissa Cruz APRN, for advice regarding the patient's existing obstructive sleep apnea (MICHELLE). He was using PAP therapy up until 6-8months ago because it was harder to breathe, the pressure didn't seem adequate, and he had a lot ofmask leak. He has the same PAP machine as ordered originally back in 2005. Mr. Gage thinks his MICHELLE is a little better, as his weight was heavier back then. After having [facility] in [facility] check his machine out recently, there appears to be nothing wrong with it. [facility] reports he requires a new prescription for continued supplies and possibly for a new machine. When on PAP therapy, his respiratory symptoms were controlled. He is snoring now but denies continued apneas, gasping, dry mouth or nasal obstruction off PAP therapy. He also has increased daytime sleepiness and less energy. Mr. Gage sleeps in a bed with 2-3 pillows under his head. He denies difficulty with sleep onset or maintenance at this time. Bedtime is between 10- 11p and it can take him up to 20 minutes to fall asleep. He wakes 1-2 times per night to void or because of dogs jumping on the bed. Mr. Gage wakes at 5:30a, not to an alarm, and is unrefreshed off PAP therapy, stays in bed for a bit. 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 He naps on weekends and may doze, which he never used to do on PAP therapy, though though it's not as bad as it used to be. Patient denies daytime cognitive difficulty. He drives, gets slightly drowsy but not like before PAP therapy. Patient knows to head well puller and rest, if needed, and let his drive. HPI continues below. Sleep Study at [facility] 07/26/05: AHI of 125. The most significant desaturations were noted in REM sleep. Minimum saturation was 67%.Just over 40% of his total sleep time was spent with a saturation below 90%. Recommendation: CPAP at 13 cmH2O with a Comfort Gel mask, ramp and heated humidifier. Wt on 06/08/05 was 265lbs Keeling: 11 today Other Associated Sleep Symptoms: Parasomnias: Sleep Walking: no Dream Enactment: no Bruxism: no Motor: RLS: no PLMS: no Narcolepsy: Hallucinations: no Paralysis: no Cataplexy: no Family History: Family history of sleep disorders: father would bring the house down snoring; thinks his brother likely has sleep apnea, as he is heavier than patient ROS: CON: weight change: loss of about 30lbs in the last 6-7 months, he was trying to lose weight ENT: nasal obstruction: no Environmental allergies: none PUL: GONZALEZ: no CV: chest pain: no Palpitations: no LE edema: yes, bilateral, at the end of the day, calves GI: GERD: no : Nocturia: no MSK: Pain: yes, sometimes from calves NEURO: sleep related headaches: no PSY: Depression: no Anxiety: no Past Surgical History: Past Surgical History Procedure Laterality Date ??? Appendectomy ??? Pro colonoscopy, remv moriah, snare N/A 10/09/2015 COLONOSCOPY, POLYPECTOMY, REMOVAL LESION BY SNARE performed by Lalitha Sawyer MD at [facility] ENDOSCOPY ??? Appendectomy 2008 Past Medical History: Past Medical History Diagnosis Date ??? DM (diabetes mellitus), type 2, uncontrolled ??? Hypertension, essential ??? Kidney stones around 2009 ??? Obesity (BMI 30-39.9) ??? MICHELLE on CPAP Problem List: Patient Active Problem List Diagnosis Code ??? Body mass index (BMI) greater than 30 in adult E66.8 ??? Essential hypertension I10 ??? Steatosis of liver K76.0 ??? Sleep apnea G47.30 ??? Splenomegaly R16.1 ??? Type 2 diabetes mellitus E11.9 Medications: Outpatient Prescriptions Marked as Taking for the 11/06/15 encounter (Office Visit) with Lexis Mckinnon APRN Medication Sig Dispense Refill ??? ciprofloxacin (CIPRO) 500 mg Tablet Take 1 tablet by mouth 2 times daily. 20 tablet 0 ??? metroNIDAZOLE (FLAGYL) 500 mg Tablet Take 1 tablet by mouth 2 times daily. 20 tablet 0 ??? lisinopril (PRINIVIL;ZESTRIL) 20 mg Tablet Take 20 mg by mouth daily. ??? metFORMIN (GLUCOPHAGE) 500 mg Tablet Take 500 mg by mouth daily. Social History: Living situation: lives with Employment: f/t+ Alcohol: a couple beers previously/day, not in last two weeks-on antibiotic Smoking: never Caffeine: 1-2 cups per day of half caf Other drugs: none PE: BP 126/84 Pulse 66 Ht 181.6 cm (5' 11.5) Wt (!) 115.8 kg (255 lb 6.4 oz) SpO2 98% BMI 35.12 kg/m2 General: 50yo M, NAD; weight was taken today with clothes on, shoes on, heavy long sleeve shirt, keys in pocket Eyes: PERRL, conjunctiva clear ENT: oropharynx MP: 4 Crowded: yes, very narrow airway passage, high hard palate, tonsils present Dentition: good Mandibular structure and position: normal occlusion NECK: Submental fat present: slight, supple, no LAD, no thyroid enlargement Circumference: 17.5 inches LUNGS: respirations even and unlabored; CTA, no adventitious lung sounds CV: RRR, no m/g/r Slight non-pitting LE edema ABD: BS+, soft, non-tender, 1cm round, cyst-like bump felt under skin in upper left colon area NEURO: gait and station normal, no tremor SKIN: warm and dry PSYCH: Alert and appropriate: yes Oriented to person, place and time: AOx3 Affect: normal Judgement and insight: intact Assessment: Roland Gage is a 50 y.o. male with a history of MICHELLE, current snoring, increased dozing, daytime sleepiness and low energy off PAP therapy, slight drowsiness while driving, and a family history of snoring. Patient also reports intentional weight loss of approximately 30 pounds over the last 6-7 months, slight bilateral LE edema at the end of the day, and leg aches in one or both calves on occasion that he massages when in bed. He was using PAP therapy up until 6-8 months ago because it washard to breathe, the pressure didn't seem adequate, and he had a lot of mask leak. He has the same PAP machine as ordered originally back in 2005 when his original sleep study at [facility] showed severe MICHELLE with an AHI of 125 (see above). After having [facility] in [facility] check his machine out recently,there appears to be nothing wrong with it. [facility] reports he requires a new prescription for continuedsupplies and possibly for a new machine. The patient's physical exam is signficant for BMI of 35, Mallampati score of IV, high hard palate, narrow airway passage, neck girth of 17.5 inches, and slight non-pitting bilateral LE edema. Significant comorbidities include HTN, DMII, splenomegaly, and steatosis of liver. His history and symptoms are suggestive of untreated obstructive sleep apnea. Potential consequences of untreated obstructive sleep apnea reviewed. Patient education included how caffeine and alcoholintake may impact sleep. Recommend CPAP titration, followed by order for new PAP machine and supplies. The patient confirms that study results can be called to [phone](ext 14 at work), (H) and a detailed message left if they are not available for call. Time spent face to face: 55 minutes Recommendations: --CPAP titration --Patient will need order for new PAP machine and supplies after titration results (to [facility]) --Role of weight loss reviewed --Safe driving precautions extensively reviewed with the patient. The patient indicates understanding of these issues and agrees with the plan. Lexis Mckinnon APRN Cc: Merissa Cruz APRN documented in this encounter Plan of Treatment Scheduled Referrals Name Type Priority Associated Diagnoses Orde r Schedule Referral to Sleep Disorders Center Outpatient Referral Routine MICHELLE (obstructive sleep apnea) Snoring Daytime sleepiness Ordered: 11/06/2015 documented as of this encounter Visit Diagnoses Diagnosis MICHELLE (obstructive sleep apnea) Obstructive sleep apnea (adult) (pediatric) Snoring Other dyspnea and respiratory abnormality Daytime sleepiness documented in this encounter Care Teams Aperture Mask Etcher Relationship Specialty Start Date End Date Ahmet Erickson MD PCP - General 12/30/09 11/16/16 documented as of this encounter
--- OUTSIDE RECORDS SUMMARY | 2024-02-23 19:15 | XMS_ITS | Encounter Summary ---
Author Organization [facility] Address [facility] [place] [address] Care Team Providers Care Professional Wrestler Name Role Phone Ahmet Erickson MD Primary Care Provider U samm Encounter Details Date Type Department Care Team (Late st Contact Info) Description 10/27/2015 Telephone [place] [phone] Halina Schneider MD [facility] [place] [address] Social History Tobacco Use Types Packs/Day Years Used Date Smoking Tobacco: Never Alcohol Use Standard Drinks/Week Comments Yes 14 (1 standard drink = 0.6 oz pu re alcohol) Few cans of beer per night Sex and Gender Information Value Date Recorded Sex Assigned at Not on file Gender Identity Not on file Sexual Orientation Not on file documented as of this encounter Miscellaneous Notes * Telephone Encounter - Halina Schneider - 10/27/2015 1:28 PM EDT Spoke with patient regarding the results of his recent colonoscopy c/f [facility]. He is still having abdominal pain with unchanged symptoms. Prescribed ciprofloxacin and metronidazole for 10 day course ofboth. Discussed risks associated with medications and advised to stop EtOH while on antibiotics. Heis amenable. Also discussed his recent CT scan which is without abnormalities, no findings on outside read. Willfollow up after completion of antibiotics to discuss whether he has improvement in symptoms. He is scheduled for a follow up appointment on 01/07. Halina Schneider MD Gastroenterology Fellow #[id number] documented in this encounter Plan of Treatment Not on file documented as of this encounter Visit Diagnoses Not on filedocumented in this encounter Care Teams Professional Wrestler Relationship Specialty Start Date End Date Ahmet Erickson MD PCP - General 12/30/09 11/16/16 documented as of this encounter
--- OUTSIDE RECORDS SUMMARY | 2024-02-23 19:15 | XMS_ITS | Encounter Summary ---
Author Organization [facility] Address [facility] [place] [address] Care Team Providers Care Telegraph Service Clerk Name Role Phone Ahmet Erickson MD Primary Care Provider Laura quijano Encounter Details Date Type Department Care Team (Latest Contact Info) Description 10/24/2015 - 10/24/2015 11:59 PM EDT Hospital Encounter Radiology Library [place] [facility] [place] [phone] Geo Logan MD [facility] [place] [address] Pain Discharge Disposition: Home Social History Tobacco Use [...] on file documented as of this encounter Medications at Time of Discharge Medication Sig Dispensed Refills Start Date End Date lisinopril (PRINIVIL;ZESTRIL) 20 mg Tablet Take 20 mg by mouth daily. metFORMIN (GLUCOPHAGE) 500 mg Tablet Take 500 mg by mouth daily. documented as of this encounter Plan of Treatment Not on file documented as of this encounter Procedures Procedure Name Priority Date/Time Associated Diagnosis Comments FILM LIBRARY STORAGE ONLY CT ABDOMEN AND PELVIS Routine 10/24/2015 12:00 AM EDT Pain documented in this encounter Results * Film Library- Storage Only CT Abdomen & Pelvis (10/24/2015 12:00 AM EDT) Narrative RAD - 10/24/2015 9:31 PM EDT This exam is for storage only and is auto-finalizing. Geo Logan MD IMG FILM LIBRARY OR DERABLES Performing Organization Address City/State/[facility] Co de Phone Number [place], [place] documented in this encounter Visit Diagnoses Diagnosis Pain Generalized pain documented in this encounter Care Teams Telegraph Service Clerk Relationship Specialty Start Date End Date Ahmet Erickson MD PCP - General 12/30/09 11/16/16 documented as of this encounter
--- OUTSIDE RECORDS SUMMARY | 2024-02-23 19:15 | XMS_ITS | Encounter Summary ---
[place] [address] Care Team Providers Care City Collector Name Role Phone Ahmet Erickson MD Primary Care Provider Laura quijano Encounter Details Date Type Department Care Team (Latest Contact Info) Description 01/08/2016 1:00 PM EST Procedure [place] [address] Tawanna Casey MD [facility] [place] [address] FABIAN (nonalcoholic steatohepatitis) Social History Tobacco Use Types Packs/Day Years Used Date Smoking Tobacco: Never Alcohol Use Standard Drinks/Week Comments Yes 14 (1 standard drink = 0.6 oz pu re alcohol) Few cans of beer per night Sex and Gender Information Value Date Recorded Sex Assigned at Not on file Gender Identity Not on file Sexual Orientation Not on file documented as of this encounter Procedure Notes * Tawanna Casey - 01/08/2016 1:00 PM ESTAssociated Order(s): FIBROSCAN Procedure(s): FIBROSCAN Pre-Procedure Diagnose(s): FABIAN (nonalcoholic steatohepatitis) [facility] Liver Fibrosis Assessment Report Indication: FABIAN Performed by: Tawanna Casey Procedure: Vibration Controlled Transient Elastography (VCTE) or Fibroscan [place] Protocol: Patient's identity, procedure and site were verified, confirmatory pause performed. Discussed procedure including risks and potential complications. Questions answered. Patient verbalizes understanding and wishes to proceed with Fibroscan assessment. Patient was placed in the supine position with right arm in maximum abduction to allow optimal exposure of right lateral abdomen. Patient was briefly assessed. Testing was performed in the mid-axillary location. 50Hz Shear Wave pulses were applied and the resulting Shear Wave and Propagation Speed was detected with a 3.5MHz ultrasonic signal, using the Fibroscan probe. Skin to liver capsule distance and liver parenchyma were accessed during the entire examination with the Fibroscan probe. Patient was instructed to breathe normally and abstain from sudden movements during the procedure. At least ten Sheer Waves were produced; individual measurements of each Shear Wave were calculated. Patient tolerated the procedure well with no complications. Fibroscan Results: Mean kPa: 3.2 Mean IQR: (goal is <30 %) 12% Success rate: (goal is >60%) 100% Predicted fibrosis stage: F0 XL Probe documented in this encounter Plan of Treatment Not on file documented as of this encounter Procedures Procedure Name Priority Date/Time Associated Diagnosis Comments [id number] Routine 01/08/2016 1:38 PM EST FABIAN (nonalcoholic steatohepatitis) documented in this encounter Results * [id number] (01/08/2016 1:38 PM EST) Narrative Tawanna Casey - 01/08/2016 1:38 PM EST Tawanna Casey MD ? 01/08/2016 ??1:38 PM [facility] Liver Fibrosis Assessment Report Indication: ??FABIAN Performed by: ??Tawanna Casey Procedure: Vibration Controlled Transient Elastography (VCTE) or Fibroscan [place] Protocol: Patient's identity, procedure and site were verified, confirmatory pause performed. Discussed procedure including risks and potential complications. Questions answered. Patient verbalizes understanding and wishes to proceed with Fibroscan assessment. Patient was placed in the supine position with right arm in maximum abduction to allow optimal exposure of right lateral abdomen. Patient was briefly assessed. Testing was performed in the mid-axillary location. 50Hz Shear Wave pulses were applied and the resulting Shear Wave and Propagation Speed was detected with a 3.5MHz ultrasonic signal, using the Fibroscan probe. Skin to liver capsule distance and liver parenchyma were accessed during the entire examination with the Fibroscan probe. Patient was instructed to breathe normally and abstain from sudden movements during the procedure. At least ten Sheer Waves were produced; individual measurements of each Shear Wave were calculated. Patient tolerated the procedure well with no complications. Fibroscan Results: Mean kPa: 3.2 Mean IQR: (goal is <30 %) 12% Success rate: (goal is >60%) 100% Predicted fibrosis stage: F0 XL Probe Elinor Nicholson MD PROCEDURE/MINOR SURG ICAL ORDERABLES documented in this encounter Visit Diagnoses Diagnosis FABIAN (nonalcoholic steatohepatitis) Other chronic nonalcoholic liver disease documented in this encounter Care Teams City Collector Relationship Specialty Start Date End Date Ahmet Erickson MD PCP - General 12/30/09 11/16/16 documented as of this encounter
--- OUTSIDE RECORDS SUMMARY | 2024-02-23 19:15 | XMS_ITS | Encounter Summary ---
Author Organization [facility] Address [address] [place] [address] Care Team Providers Care Machine Setter Supervisor Name Role Phone Jason Maya MD Primary Care Provider Unav ailable Encounter Details Date Type Department Care Team (Late st Contact Info) Description 02/23/2021 Lab Requisition [facility] Pathology & Laboratory Medicine - [facility] [address], [place] [id number] Outr Resulting Lab, Provider Social History Tobacco Use Types Packs/Day Years [...] Procedure Name Priority Date/Time Associated Diagnosis Comments HEPATITIS B SURFACE ANTIBODY Routine 02/23/2021 14:10 EST HEPATITIS B SURFACE ANTIGEN Routine 02/23/2021 14:10 EST documented in this encounter Results * HEPATITIS B SURFACE ANTIBODY (02/23/2021 14:10 EST) Hep B Surface Ab, Quantitative 174.6 See Note mIU/mL 02/24/2021 9:02 EST [facility] Comment: Reference Range for Hep B Surface Ab, Quant: Positive: >= 10.0 mIU/mL Negative: ??< 10.0 mIU/mL Patient is presumed to be immune to infection with Hepatitis B Virus. Hep B Surface Ab, Qualitative Positive See Note 02/24/2021 9:02 EST [facility] Comment: Reference Range for Hep B Surface Ab, Qual: Unvaccinated: ??Negative Vaccinated: ??Positive Blood VENOUS BLOOD / Unknown 02/23/2021 14:10 EST 02/23/2021 21:06 EST us Provider Outr Resulting Lab CHEMISTRY & BLOOD GA S ORDERABLES Final Result Performing Organization Address [facility] Co de Phone Number [facility] [address] [place] [address] * HEPATITIS B SURFACE ANTIGEN (02/23/2021 14:10 EST) Hep B Surface Ag Negative Negative 02/24/2021 9:10 EST [facility] Blood VENOUS BLOOD / Unknown 02/23/2021 14:10 EST 02/23/2021 21:06 EST us Provider Outr Resulting Lab CHEMISTRY & BLOOD GA S ORDERABLES Final Result Performing Organization Address [facility] de Phone Number [facility] [address] [place] [address] documented in this encounter Visit Diagnoses Not on filedocumented in this encounter Additional Health Concerns Infection Onset Date Last Indicated Resolved Time COVID-19 02/03/2021 02/03/2021 02/23/2021 22:1 5 EST documented as of this encounter Care Teams Machine Setter Supervisor Relationship Specialty Start Date End Date Jason Maya MD PCP - General 12/23/14 documented as of this encounter
--- OUTSIDE RECORDS SUMMARY | 2024-02-23 19:15 | XMS_ITS | Encounter Summary ---
Author Organization [facility] Address [address] [place] [address] Care Team Providers Care Lettuce Trimmer Name Role Phone Jason Maya MD Primary Care Provider Unav ailable Encounter Details Date Type Department Care Team (Late st Contact Info) Description 02/03/2021 Lab Requisition [facility] Pathology & Laboratory Medicine - [address] [id number] Outr Resulting Lab, Provider Social History Tobacco [...] Procedure Name Priority Date/Time Associated Diagnosis Comments ZZCOVID-19 TEST [facility] PCR Today 02/03/2021 13:28 EST COVID-19 TESTING Routine 02/03/2021 13:2 8 EST documented in this encounter Results * COVID-19 TEST [facility] PCR (02/03/2021 13:28 EST) Swab 02/03/2021 13:2 8 EST 02/03/2021 22:32 EST us Provider Outr Resulting Lab MICROBIOLOGY - GENER AL ORDERABLES Final Result [facility] [address] [place] [address] * (ABNORMAL) COVID-19 TESTING (02/03/2021 13:28 EST) COVID-19 rt-PCR Result Positive(AA ) Negative 02/04/2021 3:02 EST [facility] Comment: This test has not been FDA cleared or approved. This test has been authorized by FDA under an EUA for use by authorized laboratories. This test has been authorized only for detection of nucleic acid from 2019-nCoV, not for any other viruses or pathogens. This test is only authorized for the duration of the declaration that circumstances exist justifying the authorization of emergency use of in vitro diagnostic tests for detection and/or diagnosis of 2019-nCoV under section 564(b)(1) of Act, 21 U.S.C ?? 360bbb-3(b) (1), unless the authorization is terminated or revoked sooner. Performed on the [employer]iat[employer] Fusion instrument Performing Lab [place] [facility] Lab 02/04/2021 3:02 EST [facility] Swab 02/03/2021 13:2 8 EST 02/03/2021 22:32 EST us Provider Outr Resulting Lab MICROBIOLOGY - GENER AL ORDERABLES Final Result [facility] [address] [place] [address] documented in this encounter Visit Diagnoses Not on filedocumented in this encounter Additional Health Concerns Infection Onset Date Last Indicated Resolved Time COVID-19 02/03/2021 02/03/2021 02/23/2021 22:1 5 EST documented as of this encounter Care Teams Lettuce Trimmer Relationship Specialty Start Date End Date Jason Maya MD PCP - General 12/23/14 documented as of this encounter
--- OUTSIDE RECORDS SUMMARY | 2024-02-23 19:15 | XMS_ITS | Encounter Summary ---
Author Organization [facility] [place] [address] Care Team Providers Care Solderer Production Line Name Role Phone Ahmet Erickson MD Primary Care Provider U samm Encounter Details Date Type Department Care Team (Late st Contact Info) Description 11/06/2015 Orders Only [facility] [address] [place] [id number] Lexis Mckinnon, SCANNING COORDINATOR Social History Tobacco Use Types Packs/Day Years [...] as of this encounter Progress Notes * Lexis Mckinnon, SCANNING COORDINATOR - 11/06/2015 3:30 PM EDT Polysomnogram Order Form Room # Technologist Assignment: To be read by on PSG Patient Information: Date of Study: Name: Roland Gage (50 y.o. male) : 1965 Ht Readings from Last 1 Encounters: 11/06/15 181.6 cm (5' 11.5) Wt Readings from Last 1 Encounters: 11/06/15 (!) 115.8 kg (255 lb 6.4 oz) Normal Sleep Hours: 10p-5:30a Arrival Time: Physical/Mobility Limitations: No Cognitive Limitations: No Requires Male Tech: No Requires Female Tech: No Requires 1:1 Care: No Requires Parent/Caregiver: No Home Oxygen Useage: No At Home, Sleeps in a: Bed with 2-3 pillows under his head PSG Indications: Pressure intolerance, difficulty breathing on 13cm H2O PAP therapy, mask leak, snoring, daytime sleepiness, increased dozing; significant intentional weight loss in past 6-7 months (30lbs) Other Medical Conditions: HTN, DMII, splenomegaly, and steatosis of liver PSG Orders Type of Study: CPAP titration, start at 6cm H2O; if pressure needed > 15cw, move to BiPAP and start at 14/8 Additional Data Required: na Special Instructions: na *Initiate CPAP/BPAP/oxygen per previously determined protocols unless otherwise specified. documented in this encounter Plan of Treatment Not on file documented as of this encounter Visit Diagnoses Not on filedocumented in this encounter Care Teams Solderer Production Line Relationship Specialty Start Date End Date Ahmet Erickson MD PCP - General 12/30/09 11/16/16 documented as of this encounter
--- OUTSIDE RECORDS SUMMARY | 2024-02-23 19:15 | XMS_ITS | Encounter Summary ---
Author Organization [facility] Address [facility] [place] [address] Care Team Providers Care Used Car Renovator Name Role Phone Ahmet Erickson MD Primary Care Provider U navailable Reason for Visit * Auth/Cert Specialty Diagnoses / Procedures Referred By Contac t Referred To Contact Diagnoses LLQ abdominal pain Procedures PRO COLONOSCOPY, DIAGNOSTIC COLONOSCOPY, DIAGNOSTIC Referral ID Status Reason Start Date Expiration Date Visits Re quested Visits Authorized [id number] 1 1 Encounter Details Date Type Department Care Team (Late st Contact Info) Description 10/09/2015 8:00 AM EDT - 10/09/2015 9:00 AM EDT Surgery [place] [address] Lalitha Sawyer MD [facility] [place] [address] COLONOSCOPY, POLYPECTOMY, REMOVAL LESION BY SNARE (WRVU 4.57) Social History Tobacco Use Types Packs/Day Years [...] through Care Everywhere. * COLONOSCOPY : POST-OP (GAMBIAN) documented in this encounter Medications at Time [...] AM EDT 10/09/2015 9:14 AM EDT Narrative [facility] - 10/09/2015 9:14 AM EDT Specimen requisition ordered. ??Separate Pathology report to follow Lalitha Sawyer MD PATHOLOGY/CYTOLOGY O PHILLIP Performing Organization Address [facility]/ZIP Co de Phone Number [facility] [place] [address] * Specimen to Pathology (surgical or derm) (10/09/2015 9:14 AM EDT) AP Specimen 10/09/2015 9:14 AM EDT 10/09/2015 9:14 AM EDT Narrative [facility] - 10/09/2015 9:14 AM EDT Specimen requisition ordered. ??Separate Pathology report to follow Lalitha Sawyer MD PATHOLOGY/CYTOLOGY O PHILLIP Performing Organization Address [facility]/ZIP Co de Phone Number [facility] [place] [address] * Specimen to Pathology (surgical or derm) (10/09/2015 9:14 AM EDT) AP Specimen 10/09/2015 9:14 AM EDT 10/09/2015 9:14 AM EDT Narrative [facility] - 10/09/2015 9:14 AM EDT Specimen requisition ordered. ??Separate Pathology report to follow Lalitha Sawyer MD PATHOLOGY/CYTOLOGY O PHILLIP Performing Organization Address [facility] [place] [place] [address] * Specimen to Pathology (surgical or derm) (10/09/2015 9:14 AM EDT) AP Specimen 10/09/2015 9:14 AM EDT 10/09/2015 9:14 AM EDT [facility] - 10/09/2015 9:14 AM EDT Specimen requisition ordered. ??Separate Pathology report to follow Lalitha Sawyer MD PATHOLOGY/CYTOLOGY O PHILLIP Performing Organization Address [facility] [place] [address] * Specimen to Pathology (surgical or derm) (10/09/2015 9:14 AM EDT) AP Specimen 10/09/2015 9:14 AM EDT 10/09/2015 9:14 AM EDT [facility] - 10/09/2015 9:14 AM EDT Specimen requisition ordered. ??Separate Pathology report to follow Lalitha Sawyer MD PATHOLOGY/CYTOLOGY O PHILLIP Performing Organization Address [facility] [place] [address] * Specimen to Pathology (surgical or derm) (10/09/2015 9:14 AM EDT) AP Specimen 10/09/2015 9:14 AM EDT 10/09/2015 9:14 AM EDT [facility] - 10/09/2015 9:14 AM EDT Specimen requisition ordered. ??Separate Pathology report to follow Lalitha Sawyer MD PATHOLOGY/CYTOLOGY O RDERABLES [facility] [place] [address] * Surgical Pathology Report (10/09/2015 9:13 AM EDT) Final Diagnosis [id number] ? Location: 4T; EA13; A The signing [...] Totally submitted. (T1) 10/19/2015 12:23 PM EDT [facility] GI Biopsy 10/09/2015 9:13 AM [...] EDT Lalitha Sawyer MD PATHOLOGY/CYTOLOGY O RDERABLES [facility] [place] [address] * COLONOSCOPY (10/09/2015 7:54 AM EDT) COLONOSCOPY [facility] Endoscopy ___ Procedure Date: 10/09/2015 7:54 AM ? Patient Name: Roland Gage ? Date of : 1965 ? Age: 50 ? Order #: [id number] ? Instrument Name: [id number] ? ___ Procedure: ? Colonoscopy Indications: ? Abdominal pain in the left upper ? quadrant, Clinically significant ? diarrhea of unexplained origin Providers: ? Lalitha Sawyer MD, Katrina Biggs ? Rosalie Jordan, Transitions Manager Rn Referring MD: ?Ahmet Erickson MD, Halina ? [...] preparation was ? evaluated using the BBPS ([place] ? Bowel Preparation Scale) with scores ? [...] PROVATION documented in this encounter Visit Diagnoses Diagnosis Hepatic steatosis Other chronic nonalcoholic liver disease Chronic abdominal pain Abdominal pain, unspecified site documented in this encounter Administered Medications Inactive Administered Medications - up to 3 most recent administrations Medication Order MAR Action Action Date Dose Rate Site diphenhydrAMINE (BENADRYL) injection ONCE PRN, Starting on Tue10/09/15 at 0808, Until Tue10/09/15 at 1216, Intra-Operative (Intra-Procedure), Routine Given 10/09/2015 8:08 AM EDT 25 mg Right Arm fentaNYL 50 mcg/mL multi-dose injection ONCE PRN, Starting on Gina 10/09/15 at 0808, Until Gina 10/09/15 at 1216, Intra-Operative (Intra-Procedure), Routine Given 10/09/2015 8:23 AM EDT 50 mcg Right Arm Given 10/09/2015 8:13 AM EDT 50 mcg Ri ght Arm Given 10/09/2015 8:08 AM EDT 50 mcg Ri ght Arm lactated ringers infusion 100 mL/hr, Intravenous, CONTINUOUS, Starting on Gina 10/09/15 at 0800, Until Gina 10/09/15 at 1015, Endoscopy (Day of Procedure) New Bag 10/09/2015 7:41 AM EDT 100 mL/hr 100 mL/hr midazolam (PF) (VERSED) 1 mg/mL multi-dose injection ONCE PRN, Starting on Gina 10/09/15 at 0808, Until Gina 10/09/15 at 1216, Intra-Operative (Intra-Procedure), Routine Given 10/09/2015 8:22 AM EDT 1 mg Right Arm Given 10/09/2015 8:13 AM EDT 1 mg Ri ght Arm Given 10/09/2015 8:08 AM EDT 2 mg Ri ght Arm documented in this encounter Active and Recently [...] Gina 10/09/15 at 1216, Intra-Operative (Intra-Procedure), Routine 08 (Given - Provid er: Katrina Jordan RN)08 (Given - Provider: Katrina Jordan RN)08 (Given - Provider: Katrina Jordan RN) documented in this encounter Care Teams Used Car Renovator Relationship Specialty Start Date End Date Ahmet Erickson MD PCP - General 12/30/09 11/16/16 documented as of this encounter
--- OUTSIDE RECORDS SUMMARY | 2024-02-23 19:15 | XMS_ITS | Clinical Summary ---
Author Organization [facility] Address [facility] [place] [address] Care Team Providers Care Technical Communication Teacher Name Role Phone Unknown Primary Care Provider Unavailabl e Allergies Active Allergy Reactions Criticality Noted Date Comments Hymenoptera Allergenic Extract High 10/09/2015 Metoprolol 11/06/2015 Other reaction(s): constipation Medications Medication Sig Dispensed Refills Start Date End Date Status lisinopril (PRINIVIL;ZESTRIL) 20 mg Tablet Take 20 mg by mouth daily. Active metFORMIN (GLUCOPHAGE) 500 mg Tablet Take 500 mg by mouth daily. Active ciprofloxacin (CIPRO) 500 mg Tablet Take 1 tablet by mouth 2 times daily. 20 tablet 10/27/2015 Active Additional Information Patient not taking.Reported on 01/08/2016 metroNIDAZOLE (FLAGYL) 500 mg Tablet Take 1 tablet by mouth 2 times daily. 20 tablet 10/27/2015 Active Additional Information Patient not taking.Reported on 01/08/2016 atorvastatin (LIPITOR) 10 mg Tablet 12/12/2015 Active Active Problems Problem Noted Date Diagnosed Date Lower abdominal pain 01/12/2016 Body mass index (BMI) greater than 30 in adult 0 11/06/2015 Sleep apnea 11/06/2015 Type 2 diabetes mellitus 08/22/2015 Essential hypertension 08/07/2015 Steatosis of liver 07/25/2015 Splenomegaly 07/25/2015 Family History Medical History Relation Comments Cancer Neg Hx Colorectal Cancer Neg Hx Inflammatory Bowel Disease Neg Hx Social History Tobacco Use Types Packs/Day Years Used Date Smoking Tobacco: Never Alcohol Use Standard Drinks/Week Comments Yes 14 (1 standard drink = 0.6 oz pu re alcohol) Few cans of beer per night Sex and Gender Information Value Date Recorded Sex Assigned at Not on file Gender Identity Not on file Sexual Orientation Not on file Last Filed Vital Signs Vital Sign Reading Time Taken Comments Blood Pressure 151/87 01/08/2016 10:13 AM EST Pulse 76 03/26/2016 10:55 AM EST Temperature - - Respiratory Rate 16 10/09/2015 9:14 AM EDT Oxygen Saturation 99% 03/26/2016 10:55 AM EST Inhaled Oxygen Concentration - - Weight 113.4 kg (250 lb) 03/26/2016 10:55 AM EST Height 181.6 cm (5' 11.5) 01/08/2016 10:[address] Body Mass Index 34.38 01/08/2016 10:13 AM EST Plan of Treatment Health Maintenance Due Date Last Done Comments CT Colonography 1965 FIT DNA 1965 FIT 1965 Sigmoidoscopy 1965 HIV screen 1984 Hepatitis C Screening 1984 Lipid Screening 1984 Hepatitis B vaccine (0-59 yrs) (1) 1985 Tetanus/Diphtheria/Pertussis Vaccines (1 - Tdap) 1985 Zoster vaccine (1 of 2) 2016 Advance Directive 2021 Covid-19 Vaccine (1 - 2023-25 season) 2023 Influenza (Flu) vaccine (1 o f 1 - Influenza standard series) 10/09/2023 Colonoscopy 10/08/2025 10/09/2015, 10/09/2015 Colorectal Cancer Screening 10/08/2025 Sigmoidoscopy (10 year) with FIT yearly 10/08/2025 0 10/09/2015, 10/09/2015 Procedures Procedure Name Priority Date/Time Associated Diagnosis Comments COLONOSCOPY Routine 10/09/2015 7:54 AM EDT from Last 3 Months or Most Recently Relevant to Health Maintenance Results * COLONOSCOPY (10/09/2015 7:54 AM EDT) COLONOSCOPY [facility] Endoscopy ___ Procedure Date: 10/09/2015 7:54 AM ? Patient Name: Roland Gage ? Date of : 1965 ? Age: 50 ? Order #: [id number] ? Instrument Name: [id number] ? ___ Procedure: ? Colonoscopy Indications: ? Abdominal pain in the left upper ? quadrant, Clinically significant ? diarrhea of unexplained origin Providers: ? Lalitha Sawyer MD, Katrina Biggs ? Rosalie Jordan, Lens Grinder Apprentice Referring MD: ?Ahmet Erickson MD, Halina ? [...] preparation was ? evaluated using the BBPS ([place] ? Bowel Preparation Scale) with scores ? [...] Ahmet Erickson MD GENERAL SURGICAL ORDERABLES PROVATION from Last 3 Months or Most Recently Relevant to Health Maintenance Care Teams Technical Communication Teacher Relationship Specialty Start Date End Date Unknown None PCP - General 11/17/16
--- OUTSIDE RECORDS SUMMARY | 2024-02-23 19:15 | XMS_ITS | Encounter Summary ---
Author Organization [facility] [place] [address] Care Team Providers Care Health Psychologist Name Role Phone Ahmet Erickson MD Primary Care Provider U carlosailjet Reason for Visit * Reason Comments Obstructive Sleep Apnea Encounter Details Date Type Department Care Team (Late st Contact Info) Description 03/26/2016 11:00 AM EST Office Visit [facility] [address] [place] [address] Nicole Davey [facility] MICHELLE on CPAP Social History Tobacco Use Types Packs/Day Years [...] Sign Reading Time Taken Comments Blood Pressure - - Pulse 76 03/26/2016 10:55 AM EST Temperature - - Respiratory Rate - - Oxygen Saturation 99% 03/26/2016 10:55 AM EST Inhaled Oxygen Concentration - - Weight 113.4 kg (250 lb) 03/26/2016 10:55 AM EST Height - - Body Mass Index 34.38 01/08/2016 10:13 AM EST documented in this encounter Progress Notes * Nicole Davey CRTT - 03/26/2016 11:00 AM EST Sleep Medicine Clinical Health Specialist Brief Follow-Up Note HPI: Mr. Roland Gage is a 50 y.o. male seen for follow-up of obstructive sleep apnea. Patientpresents today for follow-up in PAP clinic: Sleep Study at [facility] 07/26/05: AHI of 125. The most significant desaturations were noted in REM sleep. Minimum saturation was 67%.Just over 40% of his total sleep time was spent with a saturation below 90%. Recommendation: CPAP at 13 cmH2O with a Comfort Gel mask, ramp and heated humidifier. Wt on 06/08/05 was 265 lbs Sleep Study: 12/01/15 CPAP was titrated from a pressure of 6cm to 9cm. Events were generally very limited in NREM sleep. Ongoing evidence of upper airway obstruction and cyclic oxygen desaturations were noted in REM sleep, improved as the pressures increased. On the final pressure of 9 cm, the residual AHI was 4.8 with a min SpO2 of 87% observed. Weight: 257.8# Treatment: CPAP Pressure: 9-16 cm Interface: Nasal mask Fit: good Chin Strap: has one but not needing to use it HCC: KMP Snoring: no Dry Mouth/Throat: no Mouth Breathing: no Patient perceived outcome: Doing better since using CPAP again-like the new machine. Definite overall improvement. Daytime Symptoms: Marion: 6 Daytime sleepiness/fatigue: much less Naps: Hasn't been since he started back on CPAP Involuntary Dozing: Hasn't been since he started back on CPAP Sleepiness or Drowsiness when driving: not anymore Sleep Pattern: Bedtime: 10 pm, affixes his mask, watches a little TV, no problems initiating sleep Rise time: 530 am, feels refreshed Awakening's: not waking anymore ROS: ?? ENT: Nasal Obstruction:?? no Constitutional:?? Weight is down from 257 to 250# Compliance Card Data: Date Range: 02/23-03/26 Settin-16 cm Median 10 cm/95% 11.3 cm Residual AHI: 0.1 Vibratory Snore Index: n/a % Night in Large Leak: Median 0.4/95% 6.7 Average usage all days-Hours: 6 hr # Days of usage: 30/30 % Days used > 4 hours 87% Total % Days used 100% Physical Exam: Respirations: Even and not labored at rest DERM: Skin irritation: none Assessment Roland Gage is a 50 y.o. male seen for obstructive sleep. The data download reveals excellent control of obstrutive events and leak. The patient demonstrates good adherence and reports significant overall benefit with his sleep quality, daytime energy and alertness. RTC one year/PRN Time spent face to face: 30 Min. Recomendations: 1) CPAP 9-16 cm with ramp and Heated Humidity 2) Follow-up: RTC one year with [facility] or [facility] 3) Driving safety discussed, recommend patient not drive if drowsy, if drowsy while driving to candy puller and take a nap The patient indicates understanding of these issues and agrees with the plan. The case was discussed with Dr. Gutiérrez who saw the patient and participated in the formulation and decision making. * Jeaneth Gutiérrez MD - 03/26/2016 11:00 AM EST I evaluated . Roland Gage with Grace Davey CRT and performed feliz aspects of the history and examination. I actively participated in the formulation of the management strategy. I have reviewed Grace Davey CRT's note and agree with the assessment and recommendations. JEANETH GUTIÉRREZ MD documented in this encounter Plan of Treatment Not on file documented as of this encounter Visit Diagnoses Diagnosis MICHELLE on CPAP Obstructive sleep apnea (adult) (pediatric) documented in this encounter Care Teams Health Psychologist Relationship Specialty Start Date End Date Ahmet Erickson MD PCP - General 12/30/09 11/16/16 documented as of this encounter
--- OUTSIDE RECORDS SUMMARY | 2024-02-23 19:15 | XMS_ITS | Encounter Summary ---
Author Organization [facility] Address [facility] [place] [address] Care Team Providers Care Quarry Boss Name Role Phone Ahmet Erickson MD Primary Care Provider U carlosailable Reason for Visit * Reason Comments Follow-up Encounter Details Date Type Department Care Team (Late st Contact Info) Description 01/08/2016 10:30 AM EST Office [place] [address] Halina Schneider MD [facility] [place] [address] Steatosis of liver; Body mass index (BMI) greater than 30 in adult; Lower abdominal pain Social History Tobacco Use Types Packs/Day Years [...] Pressure 151/87 01/08/2016 10:13 AM EST Pulse 56 01/08/2016 10:13 AM EST Temperature - - Respiratory Rate - - Oxygen Saturation - - Inhaled Oxygen Concentration - - Weight 116.6 kg (257 lb) 01/08/2016 10:13 AM EST Height 181.6 cm (5' 11.5) 01/08/2016 10:[address] Body Mass Index 35.34 01/08/2016 10:13 AM EST documented in this encounter Progress Notes * Halina Schneider Maged - 01/08/2016 10:30 AM EST [facility] Division of Gastroenterology and Hepatology Outpatient Follow up Reason for Visit: Abdominal pain, history of hepatitis Referred by Ahmet Erickson Patient ID: Roland Gage is a 49 y.o. male with PMH significant for a new diagnosis of type IIdiabetes, HTN, MICHELLE on CPAP, obesity who is referred to GI for hepatic steatosis and left mid-abdominal pain. Interval events: Pt had a colonoscopy with Dr. Sawyer in October. This showed focal inflammation surrounding diverticulosis, concerning for SCAD (segmental colitis associated with diverticulosis). Pt was treated with a course of cipro and flagyl and did have resolution of his abdominal pain. His bowel movement vinod quency is regular, usually once per day and firm without straining. He has not had diarrhea over the past few months or in the setting of his prior pain. He does have an ongoing discomfort/strain feeling at his left anterior, lower ribs which is exacerbated by moving in certain ways or laying on the left side. This is different from the abdominal pain he was having. Weight has been stable to a bit higher since his last visit. He has not been as regimented about his diet as he was previously and has started eating more ice cream. He also continues to drink 2-3 beers most nights. Otherwise health is stable without new issues. He just got a new CPAP and has been using regularly.He is also getting hepatitis a and b vaccines with his pcp. Diabetes has been well controlled with metformin and he actually had such a low A1c that he may be able to come off of medication. Review of Systems: Constitutional: No weight loss HEENT: No visual changes, URI symptoms Cardio: No chest pain/palpitations Resp: No cough, no SOB Hem/Lymph: no new lumps or bumps on body GI: see HPI : no dysuria Skin: no new rashes Musculoskeletal: no new joint pains Neuro: no new numbness, weakness in extremities All other systems negative except as above in HPI Past Medical History Diagnosis Date ??? DM (diabetes mellitus), type 2, uncontrolled ??? Hypertension, essential ??? Kidney stones around 2009 ??? Obesity (BMI 30-39.9) ??? MICHELLE on CPAP Past Surgical History Procedure Laterality Date ??? Appendectomy ??? Pro colonoscopy, remv lesn, snare N/A 10/09/2015 COLONOSCOPY, POLYPECTOMY, REMOVAL LESION BY SNARE performed by Lalitha Sawyer MD at [facility] ENDOSCOPY ??? Appendectomy 2008 Social History: reports that he has never smoked. He does not have any smokeless tobacco history onfile. He reports that he drinks about 8.4 oz of alcohol per week Family History: family history is negative for Colorectal Cancer, Inflammatory Bowel Disease, and Cancer. Current Outpatient Prescriptions Medication Sig Dispense Refill ??? atorvastatin (LIPITOR) 10 mg Tablet ??? lisinopril (PRINIVIL;ZESTRIL) 20 mg Tablet Take 20 mg by mouth daily. ??? metFORMIN (GLUCOPHAGE) 500 mg Tablet Take 500 mg by mouth daily. ??? ciprofloxacin (CIPRO) 500 mg Tablet Take 1 tablet by mouth 2 times daily. (Patient not taking: Reported on 01/08/2016) 20 tablet 0 ??? metroNIDAZOLE (FLAGYL) 500 mg Tablet Take 1 tablet by mouth 2 times daily. (Patient not taking:Reported on 01/08/2016) 20 tablet 0 No current facility-administered medications for this visit. Allergies Allergen Reactions ??? Hymenoptera Allergenic Extract ??? Metoprolol Other reaction(s): constipation Physical Examination: BP 151/87 Pulse 56 Ht 181.6 cm (5' 11.5) Wt (!) 116.6 kg (257 lb) BMI 35.34 kg/m2 General: Pleasant, cooperative, NAD. Overweight. HEENT: NC/AT, PERRL, anicteric sclera, MMM, no erythema or exudate Neck: soft, supple, no cervical LAD Chest: CTAB, no wheeze, rale or rhonchi CVS:RRR, normal s1/s2, No MRG ABD: soft, NABS, NT/ND, No hepatosplenomegaly appreciated Rectal: Deferred Extremities: Warm and well perfused. No clubbing, cynanosis or edema Skin:No rash or lesion Neuro: AAOx3, Grossly non-focal. Labs: Reviewed in ED[facility]/Scan Docs Lab Results Component Value Date WBC 9.6 09/16/2015 HGB 14.7 09/16/2015 HCT 43.1 09/16/2015 MCV 84.2 09/16/2015 PLATELET 173 09/16/2015 Chemistry Component Value Date/Time NA 140 09/16/2015 1039 K 4.8 09/16/2015 1039 CL 100 09/16/2015 1039 CO2 26 09/16/2015 1039 BUN 12 09/16/2015 1039 CREATININE 0.83 09/16/2015 1039 Component Value Date/Time CALCIUM 9.3 09/16/2015 1039 ALKPHOS 74 09/16/2015 1039 AST 16 09/16/2015 1039 ALT 20 09/16/2015 1039 BILITOT 0.5 09/16/2015 1039 Lab Results Component Value Date ALT 20 09/16/2015 AST 16 09/16/2015 ALKPHOS 74 09/16/2015 BILITOT 0.5 09/16/2015 Surgical Pathology DIAGNOSIS A - Right colon, biopsy: Colonic mucosa with lymphoid aggregate. B - Transverse colon, polypectomy: Polypoid colonic mucosa. C - ??By at 50 cm, biopsy: Colonic mucosa with lymphoid aggregate and focal active colitis. D - Left colon, biopsy: Colonic mucosa with lymphoid aggregate. E - Sigmoid colon, polypectomy: Hyperplastic polyp. F - Rectum, polypectomy: Hyperplastic polyp. Past Endoscopy: Colonoscopy 10/09/2015: Impression: ??- One 3 mm polyp in the transverse colon. Resected and retrieved. ?- One 4 mm polyp in the sigmoid colon. Resected and retrieved. ?- One 3 mm polyp in the sigmoid colon. Resected and retrieved. ?- One 2 mm polyp in the rectum. Resected and retrieved. ?- Mildly congested mucosa at the splenic flexure. Biopsied. ?- Otherwise normal colonic mucosa. ??Biopsied for microscopic colitis. ?- Diverticulosis in the sigmoid colon, at the splenic flexure and in the transverse colon. ?- Non-bleeding external and internal hemorrhoids. Additional Testing: Reviewed available labs, imaging and endoscopy results in [facility] as well as Scan Docs tab. Fibroscan Results 01/09/2016: Mean kPa: 3.2 Mean IQR: (goal is <30 %) 12% Success rate: (goal is >60%) 100% Predicted fibrosis stage: F0 XL Probe IMPRESSION: Roland Gage is a 50 y.o. with new diagnosis of type II diabetes, HTN, MICHELLE on CPAP, obesity who returns to GI clinic given concern for hepatic steatosis and left mid-abdominal pain. Pain is now resolved following treatment with antibiotics for possible SCAD. Symptoms were not totally consistent with SCAD since he never had diarrhea, however pain is now resolved following treatment with antibiotics. SCAD does remit in 1/3 of patients so could consider another course of antibiotics in the future if he had a relapse. He does still have some LUQ pain which seems more consistent with costochondritis/musculoskeletal injury since it is positional in nature and feels superficial. Regarding the ultrasound finding of fatty liver, his AST/ALT were normal on the labs drawn in September which is reassuring. We also performed a fibroscan today to assess for fibrosis and this predicteda fibrosis stage zero. We discussed that if he can maintain his lower weight and keep good control of diabetes, liver disease from FABIAN will likely not be a problem for him in the future. He does continue to drink 2-3 beers per days which I advised him to cut down on, as it is possible to develop alcoholic steatohepatitis as well. RECOMMENDATIONS: Hx of probable NAFLD +/- JASVIR, transaminases now normalized with no fibrosis on fibroscan # completed Fibroscan today # Continue dietary and weight loss measures as you are currently doing # hep A and hep B vaccination per PCP # Counseled on alcohol cessation # Recent labs including CMP reportedly performed per PCP, we will obtain these # Continued aggressive management of diabetes and weight Abdominal pain: resolved ?? Follow up in 6 months so assess these issues This case was discussed with Dr. Francois Schneider MD Fellow in Gastroenterology [facility] [place] [address] P: [phone] F: [phone] CC Ahmet Erickson MD [address] [place] [address] * Dirk Parrish MD - 01/08/2016 10:30 AM EST I reviewed the note by Dr. Schneider and I agree with the assessment and pln as outlined in her note from today documented in this encounter Plan of Treatment Not on file documented as of this encounter Visit Diagnoses Diagnosis Steatosis of liver Other chronic nonalcoholic liver disease Body mass index (BMI) greater than 30 in adult Lower abdominal pain Abdominal pain, other specified site documented in this encounter Care Teams Quarry Boss Relationship Specialty Start Date End Date Ahmet Erickson MD PCP - General 12/30/09 11/16/16 documented as of this encounter
--- OUTSIDE RECORDS SUMMARY | 2024-02-23 19:15 | XMS_ITS | Encounter Summary ---
Author Organization [facility] [place] [address] Care Team Providers Care Cotton Classer Name Role Phone Ahmet Erickson MD Primary Care Provider U samm Encounter Details Date Type Department Care Team (Late st Contact Info) Description 10/22/2015 Orders [place] [address] Halina Schneider MD [facility] [address] [place] [address] Chronic abdominal pain Social History Tobacco Use Types [...] as of this encounter Visit Diagnoses Diagnosis Chronic abdominal pain Abdominal pain, unspecified site documented in this encounter Care Teams Cotton Classer Relationship Specialty Start Date End Date Ahmet Erickson MD PCP - General 12/30/09 11/16/16 documented as of this encounter
--- OUTSIDE RECORDS SUMMARY | 2024-02-23 19:15 | XMS_ITS | Encounter Summary ---
Author Organization [facility] Address [facility] [place] [address] Care Team Providers Care Wholesale Account Executive Name Role Phone Ahmet Gomez MD Primary Care Provider U navailable Reason for Visit * Consultation (Routine) - Closed Specialty Diagnoses / Procedures Referred By Contac t Referred To Contact Gastroenterology Diagnoses Pt w/ 1-2 mo h/o intermittent LUQ abdominal pain found to have mild splenomegaly and hepatic stenosis w/ abd US as well as mildly elevated ESR. ? further evaluation of hepatic steatosis ?, ? Etiology of LUQ pain ?, mild splenomegaly incidental finding? Merissa Clemons, MEDICAL INTERN [address] [facility] [address] [place] [address] [facility] [place] [address] [address] Referral ID Status Reason Start Date Expiration Date V isits Requested Visits Authorized [id number] Closed Consult, Test & [facility] 08/18/2015 08/17/2016 1 1 Encounter Details Date Type Department Care Team (Late st Contact Info) Description 09/16/2015 8:30 AM EDT [place] [address] Halina Schneider MD [facility] [place] [address] Chronic abdominal pain; Hepatic steatosis; Obesity, unspecified obesity severity, unspecified obesity type Social History Tobacco Use Types Packs/Day Years Used Date Smoking Tobacco: Never Alcohol Use Standard Drinks/Week Comments Yes 0 (1 standard drink = 0.6 oz pur e alcohol) Few cans of beer per night Sex and Gender Information Value Date Recorded Sex Assigned at Not on file Gender Identity Not on file Sexual Orientation Not on file documented as of this encounter Last Filed Vital Signs Vital Sign Reading Time Taken Comments Blood Pressure 150/89 09/16/2015 8:03 AM EDT Pulse 62 09/16/2015 8:03 AM EDT Temperature - - Respiratory Rate - - Oxygen Saturation - - Inhaled Oxygen Concentration - - Weight 116.6 kg (257 lb) 09/16/2015 8:03 AM EDT Height 182.9 cm (6') 09/16/2015 8:03 AM EDT Body Mass Index 34.86 09/16/2015 8:03 AM EDT documented in this encounter Progress Notes * Halina Schneider - 09/16/2015 8:30 AM EDT [facility] Division of Gastroenterology and Hepatology Outpatient Consultation Reason for Visit: Fatty liver disease Referred by Merissa Cruz History of Present Illness: Roland Gage is a 49 y.o. male with PMH significant for a new diagnosis of type II diabetes, HTN, MICHELLE on CPAP, obesity who is referred to GI for hepatic steatosis andleft mid-abdominal pain. Mr. Gage has been having left sided abdominal pain since June that comes and goes. Describes the pain as feeling like he is inflamed and has flares at certain times, but no usual exacerbating factors. Pain is usually dull, but can also be sharp. He has been having more diarrhea since starting metformin, but before starting it his bowel movements were soft, regular. Doesn't have history of constipation. Pain sometimes improves after bowel movements, but not consistently. Not nauseated, no emesis. No hematochezia or melena. No prior history of pain like this. No abdominal surgeries or history of GI complaints. Has never had a colonoscopy. Due to this pain pt presented to his PCP a few months ago. Lab testing was performed revealing type2 diabetes and HTN. An ultrasound was also performed and showed liver changes consistent with fattyinfiltration. He has been losing weight intentionally over the past year with dietary changes. He is now down to 245 (he was over 300 pounds a few years ago). He does drink a few beers nightly which he has done for many years. He tried eliminating beer completely from his diet, but didn't feel thatit impacted his abdominal pain. He denies chest pain, shortness of breath, night sweats, dysuria. Review of Systems: Constitutional: Intentional weight loss HEENT: No visual changes, URI [...] type 2, uncontrolled ??? Hypertension, essential ??? Obesity (BMI 30-39.9) ??? MICHELLE on CPAP Past Surgical History Procedure Laterality Date ??? Appendectomy Social History: reports that he has never smoked. He does not have any smokeless tobacco history onfile. Family History: family history is negative for Colorectal Cancer, Inflammatory Bowel Disease, and Cancer. Current Outpatient Prescriptions Medication Sig Dispense Refill ??? lisinopril (PRINIVIL;ZESTRIL) 20 mg Tablet Take 20 mg by mouth daily. ??? metFORMIN (GLUCOPHAGE) 500 mg Tablet Take 500 mg by mouth daily. No current facility-administered medications for this visit. Allergies Allergen Reactions ??? Bee Sting Kit Other (See Comments) swelling Physical Examination: BP 150/89 (BP Location (NBP): Right arm, Patient Position: Sitting, BP Cuff Sizes: Large Adult (32-43 cm)) Pulse 62 Ht 182.9 cm (6') Wt (!) 116.6 kg (257 lb) BMI 34.86 kg/m2 General: Pleasant, cooperative, NAD, obese HEENT: NC/AT, PERRL, anicteric sclera, MMM, no erythema or exudate Neck: soft, supple, no cervical LAD Chest: CTAB, no wheeze, rale or rhonchi CVS:RRR, normal s1/s2, No MRG ABD: soft, NABS, NT/ND, No hepatosplenomegaly appreciated Rectal: Deferred Extremities: Warm and well perfused. No clubbing, cynanosis or edema Skin: No rash or lesion Neuro: AAOx3, Grossly non-focal. Labs: Reviewed in [facility]/Scan Docs Outside labs from 07/2015 AST/ALT 18/38 Alk phos 86 Tbili 0.6 Creatinine 0.89 Albumin 3.7 Iron 118, TIBC 305, Ferritin 354 (all within ULN) HbA1c 8.7 CBC wnl, Plt 157 Hepatitis B SAg, Hep C IgM, Hep A IgM, HCV Ab all negative Additional Testing: Reviewed available labs, imaging and endoscopy results in ED[facility]/CIS as well as Scan Docs tab. IMPRESSION: Roland Gage is a 49 y.o. with PMH significant for a new diagnosis of type II diabetes, HTN, MICHELLE on CPAP, obesity who is referred to GI for fatty liver changes on ultrasound and leftmid-abdominal pain. He is most concerned about his persistent abdominal pain today which continues to bother him on a daily basis. Thus far dietary changes and weight loss have been unsuccessful at alleviating his pain. Although he is taking metformin and has diarrhea, his pain predated metformin and does not seem impacted by it. He should have a contrasted CT of the abdomen and a colonoscopy to rule out mass lesion, malignancy, inflammatory disease. His abdominal pain symptoms cannot be clearly defined as as IBS, but may have a functional component. Lab testing does not point to an etiology for abdominal pain, but does reveal a mildly elevated ALT and low-normal platelet count. Regarding his fatty liver disease, we spent >10 minutes discussing his diagnosis of NAFLD vs hepatic steatosis and the associated risks. He has been losing weight, but his recent HgA1c of 8.7 is consistent with uncontrolled diabetes. I congratulated him on his ongoing weight loss and dietary changes. Will plan for a fibroscan at next visit to assess for degree of fibrosis. Hepatitis A and B antibodies are negative today and he should be vaccinated. We discussed that his alcohol use may put him at risk for further liver damage and we would recommend alcohol cessation. Fibrosis scores based on results today: NAFLD Fibrosis score today is calculated at 2.47 suggestive of significant fibrosis Fib 4 score 0.99 suggestive low risk of advanced fibrosis Bard 3 suggests stage 3 advanced fibrosis RECOMMENDATIONS: NAFLD +/- JASVIR # Continue dietary and weight loss measures as you are currently doing # hep A and hep B surface Abs negative, recommend vaccination per PCP # Counseled on alcohol cessation # Plan for Fibroscan at future visit # CBC and CMP performed today were reviewed, AST/ALT lower than prior at # Continued aggressive management of diabetes, HTN per PCP Abdominal Pain: # CT Abdomen/Pelvis with contrast # Colonoscopy Follow up in 3 months This case was discussed with Dr. Desmond Schneider MD [place] [address] P: [phone] F: [phone] CC AHMET GOMEZ MD [address] [place] [address] * Geo Logan MD - 09/16/2015 8:30 AM EDT I have seen and examined the patient with the GI fellow. I agree with the contents of the note. Geo Logan documented in this encounter Plan of Treatment Scheduled Orders Name Type Priority Associated Diagnoses Orde r Schedule COLONOSCOPY Procedures Routine Chronic abdominal pain Hepatic steatosis Ordered: 09/16/2015 documented as of this encounter Procedures Procedure Name Priority Date/Time Associated Diagnosis Comments LIVER FIBROSIS PANEL Routine 09/16/2015 10:39 AM EDT Chronic abdominal pain Hepatic steatosis HEMOGRAM Routine 09/16/2015 10:39 AM EDT Hepatic steatosis HEPATITIS A ANTIBODY, TOTAL Routine 09/16/2015 10:39 AM EDT Chronic abdominal pain Hepatic steatosis HEPATITIS B SURFACE ANTIBODY Routine 09/16/2015 10:39 AM EDT Chronic abdominal pain Hepatic steatosis COMPREHENSIVE METABOLIC PANEL Routine 09/16/2015 10:39 AM EDT Hepatic steatosis documented in this encounter Results * Hemogram (09/16/2015 10:39 AM EDT) White Blood Cell 9.6 4.0 - 10.0 x10(3)/[facility] LABORATORY Red Blood Cell 5.12 4.63 - 6.08 x10(6)/[facility] LABORATORY Hemoglobin 14.7 13.7 - 17.5 gm/dL [facility] Hematocrit 43.1 40.0 - 51.0 % [facility] Mean Cell Volume 84.2 79.0 - 92.0 fL [facility] Mean Cell Hemoglobin 28.7 25.6 - 32.2 pg [facility] Mean Cell Hemoglobin Concentration 34.1 32.0 - 36.5 gm/dL [facility] Platelet 173 145 - 370 x10(3)/[facility] LABORATORY RDW Standard Deviation 37.2 35.0 - 46.0 fL [facility] RDW coefficient of variation 12.3 10.9 - 14.4 % [facility] Mean Platelet Volume 10.8 9.0 - 12.0 fL [facility] NRBC% auto 0.0 % [facility] NRBC Absolute 0.000 0.000 - 0.012 x10(3)/[facility] LABORATORY Blood specimen (specimen) 09/16/2015 10:39 AM EDT 09/16/2015 10:49 AM EDT Narrative Resulting Agency Comment Spec In Lab Geo Logan MD HEMATOLOGY ORDERABL ES [facility] [place] [address] * Comprehensive metabolic panel (non-fasting) (09/16/2015 10:39 AM EDT) [facility] Glucose 126 65 - 199 mg/dL [facility] Comment:Diabetes: >=200 mg/d L plus symptoms Blood Urea Nitrogen 12 10 - 20 mg/dL [facility] Creatinine 0.83 0.80 - 1.50 mg/dL [facility] Comment: Please note that the pediatric reference intervals supplied above were not validated at [facility]. Results from pediatric patients should be interpreted in conjunction to the patient's age, height and muscle mass. Sodium 140 135 - 145 mmol/L [facility] Potassium 4.8 3.5 - 5.0 mmol/L [facility] Comment: Please note: ??Patients with WBC >100,000 may have falsely elevated Potassium levels. ??For accurate Potassium quantification in these patients send serum separator tube (gold top) for subsequent determinations. ??Contact the Clinical Chemistry Laboratory if there are any questions. Chloride 100 98 - 107 mmol/L [facility] Carbon Dioxide 26 22 - 31 mmol/L [facility] Anion Gap 14 5 - 15 mmol/L [facility] Calcium 9.3 8.5 - 10.5 mg/dL [facility] Protein, Total 7.4 6.1 - 8.0 gm/dL [facility] Albumin 4.3 3.2 - 5.2 gm/dL [facility] Aspartate Aminotransferase 16 0 - 39 unit/L [facility] Alanine Aminotransferase 20 0 - 55 unit/L [facility] Alkaline Phosphatase 74 40 - 120 unit/L [facility] Bilirubin, Total 0.5 0.2 - 1.3 mg/dL [facility] Bilirubin, Direct 0.1 0.0 - 0.3 mg/dL [facility] Est Glomerular Filtration Rate >60 >=60 [facility] Comment: This estimated GFR (eGFR) value was calculated using the MDRD equation which has been validated on patients between the ages of 18 and 70. The MDRD should not be used to assess kidney function in patients < 18 years of age or in patients with extremes of body mass, or in patients with acute kidney failure. This value should be multiplied by 1.2 for patients. For further information please copy and paste the following links into your internet browser. [email or web address] Blood specimen (specimen) 09/16/2015 10:39 AM EDT 09/16/2015 10:49 AM EDT Narrative Resulting Agency Comment Spec In Lab Geo Logan MD CHEMISTRY ORDERABLE S Performing Organization Address [facility] Co de Phone Number [facility] [place] [address] * Hepatitis B Surface Antibody (09/16/2015 10:39 AM EDT) Hepatitis B Surface Antibody Negative [facility] Comment: Expected Results: Vaccinated: Positive Unvaccinated: Negative Please note: A positive result for this assay is consistent with a concentration of anti-HBs antibodies >10mIU/ml, which indicates that anti-HBs antibodies have been detected at levels consistent with protective immunity against HBV infection. Blood specimen (specimen) 09/16/2015 10:39 AM EDT 09/16/2015 10:50 AM EDT Narrative Resulting Agency Comment Spec In Lab Geo Logan MD CHEMISTRY ORDERABLE S Performing Organization Address [facility] Co de Phone Number [facility] [place] [address] * Hepatitis A Antibody, Total (09/16/2015 10:39 AM EDT) Hepatitis A ANTIBODY, TOTAL Negative Negative [facility] Blood specimen (specimen) 09/16/2015 10:39 AM EDT 09/16/2015 10:50 AM EDT Narrative Resulting Agency Comment Spec In Lab Geo Logan MD CHEMISTRY ORDERABLE S Performing Organization Address [facility] Co de Phone Number [facility] [place] [address] * Liver Fibrosis Panel (09/16/2015 10:39 AM EDT) Liver Fibrosis Panel FLEXITEST 3 [facility] Comment: FLEXITEST 3 TESTS RESULTS--------UNITS--REF. RANGE--- Fibrosis Score ? 0.09 Fibrosis Stage ? F0 Fibrosis Interpretation ? SEE NOTE no fibrosis Fibro Test Score ?? Metavir Score 0.00-0.21 ?F0 ? no fibrosis 0.22-0.27 ?F0-F1 0.28-0.31 ?F1 ? minimal fibrosis 0.32-0.48 ?F1-F2 0.49-0.58 ?F2 ? moderate fibrosis 0.59-0.72 ?F3 ? advanced fibrosis 0.73-0.74 ?F3-F4 0.75-1.00 ?F4 ? severe fibrosis Necroinflammat Act Score ? 0.05 Necroinflammat Act Grade ? A0 Necroinflammat Interp ? SEE NOTE no activity ActiTest Score ? Metavir Score 0.00-0.17 ?A0 ? no activity 0.18-0.29 ?A0-A1 0.30-0.36 ?A1 ? minimal activity 0.37-0.52 ?A1-A2 0.53-0.60 ?A2 ? significant activity 0.61-0.62 ?A2-A3 0.63-1.00 ?A3 ? severe activity Kmkbf-1-Llalbrusvssjz ? 112 ?mg/dL ??106-279 Haptoglobin ? 183 ?mg/dL ??43-212 Apolipoprotein A1 ? 118 ?mg/dL ??94-176 Total Bilirubin ? 0.5 ?mg/dL ??0.2-1.2 GGT ?24 ?U/L ??3- 95 ALT ?18 ?U/L ??9- 46 Reference ID ?[id number] Footnote ?SEE NOTE The reliability of results is dependent on compliance with the preanalytical and analytical conditions recommended by [employer]. The tests have to be deferred for: acute hemolysis, acute hepatitis, acute inflammation, extra hepatic cholestasis. The advice of a specialist should be sought for interpretation in chronic hemolysis and Gilbert's syndrome. The test interpretation is not validated in liver transplant patients. Isolated extreme values of one of the components should lead to caution in interpreting the results. In case of discordance between a biopsy result and a test, it is recommended to seek the advice of a specialist. The causes of these discordances could be due to a flaw of the test or to a flaw in the biopsy: i.e. a liver biopsy has a 33% variability rate for one fibrosis stage. FibroTest is interpretable for chronic hepatitis B and C, alcoholic and non alcoholic steatosis. ActiTest is interpretable for chronic hepatitis B and C. The performance characteristics have been determined by [employer], [place]. It has not been cleared or approved by the U.S. Food and Drug Administration. Performance characteristics refer to the analytical performance of the test. Rainbow, the associated logo, [employer] and all associated [employer] goldman are the registered trademarks of [employer]. All third libertarian goldman - (R) and (TM) - are the property of their respective owners. (C) [id number] [employer]. All rights reserved. Test performed by: ? [employer] ? [address] ? [place] [address] ? Phone: ??[phone] Director: ??Tayo Vicente M.D. Test Reported by [employer], [employer], [address] [place], [place] Constantine Cabrera M.D., Ph.D., Director of Laboratories , [facility] [id number] Blood specimen (specimen) 09/16/2015 10:39 AM EDT 09/16/2015 11:52 AM EDT Narrative Resulting Agency Comment Spec In Lab Geo Logan MD LAB SEND OUT RAMONA BLES [facility] [place] [address] documented in this encounter Visit Diagnoses Diagnosis Chronic abdominal pain Abdominal pain, unspecified site Hepatic steatosis Other chronic nonalcoholic liver disease Obesity, unspecified obesity severity, unspecified obesity type documented in this encounter Care Teams Wholesale Account Executive Relationship Specialty Start Date End Date Ahmet Gomez MD PCP - General 12/30/09 11/16/16 documented as of this encounter
[2024-02-23 20:22] LABS: Lactate 1.2 mmol/L (0.6-1.4)
[2024-02-23 20:24] LABS: Abs Immature Grans 0.04 10^3/uL (0.0-0.06); Absolute Basophil Count 0.04 10^3/uL (0.0-0.2); Absolute Eosinophil Count 0.06 10^3/uL (0.0-0.7); Absolute Lymphocyte Count 1.38 10^3/uL (1.2-3.4); Absolute Monocyte Count 1.32 10^3/uL (0.1-0.8); Basophils % 0.4 %; Eosinophils % 0.5 %; HCT 40.5 % (40.0-50.0); HGB 13.7 g/dL (13.5-17.5); Immature Grans % 0.4 %; Lymphocytes % 12.5 %; MCH 30.1 pg (27.0-33.0); MCHC 33.8 % (32.0-36.0); MCV 89 fL (80-95); MPV 9.6 fL (8.0-11.0); Neutrophils % 74.2 %; Platelet Count 168 10^3/uL (130-400); RBC 4.55 10^6/uL (4.36-5.78); RDW 11.5 % (11.8-14.1); RDW-SD 37.2 fL; WBC 11.03 10^3/uL (4.4-10.8)
[2024-02-23 20:27] LABS: ESR 29 mm/hr (0-20)
[2024-02-23 20:28] LABS: Absolute Neutrophil Count 8.18 10^3/uL (1.2-6.7)
--- NOTE | 2024-02-23 20:30 | DI.RAD_ITS ---
Exam(s) XR TIB/FIB RT EXAM: XR TIB/FIB RT CLINICAL HISTORY: leg infection. TECHNIQUE: 2D digital imaging was performed. Two views. COMPARISON: No exams were available for comparison FINDINGS: BONES: No acute fracture is present. No bony destructive lesion is seen. Visualized portion of knee a nd ankle joints are unremarkable. SOFT TISSUE: Soft tissue edema. No foreign body or abnormal gas collection. Chronic appearing calci fications. IMPRESSION: Soft tissue swelling. No bony erosions or foreign body. DATA REPOSITORY: RADIATION DOSE DELIVERED:
--- NOTE | 2024-02-23 20:39 | ED.GENADUL_ITS ---
Discharge Plan Disposition Patient Disposition: Admit to [facility] Condition: Fair Discharge Details Chief Complaint: Cellulitis Clinical Impression: Cellulitis of right lower leg, Acute hyperglycemia Primary Care Provider: None,None ED Provider: Johann Perez Home Meds and New Rx's Prescriptions: No Action (DME) Blood Glucose Test 1 EACH strip 1 ea Miscellaneous DAILY Qty: 90 Rx Instructions: PLEASE DISPENSE [employer] IS COVERED BY PT'S INSURANCE Dx: E11.9 T2DM to maintain HbA1c less than 7% aspirin [Aspir-81] 81 MG tablet,delayed release (DR/EC) 81 mg PO DAILY metformin 500 MG tablet 500 mg PO DAILY Qty: 90 3RF lisinopril-hydrochlorothiazide 1 EACH tablet 1 ea PO DAILY Qty: 90 3RF cholecalciferol (vitamin D3) 1,000 UNIT tablet 1,000 unit PO DAILY Qty: 90 3RF cephalexin 500 mg capsule 500 mg PO QID 10 Days Qty: 40 0RF HPI General Date/Time Provider Initiated Documentation: 02/23/24 19:26 . Limitations to Documentation: no limitations . Information obtained by: patient and old records reviewed . HPI Narrative: 58-year-old gentleman with past medical history of hypertension presents for evaluation of right lower extremity redness. He was evaluated yesterday in the emergency department with some slight discoloration of his lower right leg. He states that he had scratched his leg and gotten the scab and noted that there was some associated swelling of his foot and lower leg. He noticed some circumferential redness that was very mild yesterday. Not associated with fever or chills. He was started on antibiotics. Has taken 4 doses. He states that he mostly stayed in bed and kept his foot elevated all day. He reports that about 5 hours ago he noted that he had significant redness of the outside of the right leg with a area of blackish purple in the middle. He reports that this area is tender to touch. He denies any trauma or bites. He states that he does not have a history of diabetes does not take medication for this. Related Data Home Medications ?Medication ?Instructions ?Recorded ?Confirmed blood sugar diagnostic (Blood #90 strips 08/22/15 02/22/24 Glucose Test strips) aspirin 81 mg tablet,delayed 81 mg PO DAILY 12/19/15 02/23/24 release (Aspir-) cholecalciferol (vitamin D3) 25 1,000 unit PO DAILY #90 tab-caps 12/20/16 02/23/24 mcg (1,000 unit) tablet lisinopril 20 1 ea PO DAILY #90 tab-caps 12/20/16 02/23/24 mg-hydrochlorothiazide 25 mg tablet metformin 500 mg tablet 500 mg PO DAILY #90 tab-caps 12/20/16 02/23/24 cephalexin 500 mg capsule 500 mg PO QID cellulitis 10 days 02/22/24 02/23/24 #40 caps Previous Rx's ?Medication ?Instructions ?Recorded cholecalciferol (vitamin D3) 25 1,000 unit PO DAILY #90 tab-caps 12/20/16 mcg (1,000 unit) tablet lisinopril 20 1 ea PO DAILY #90 tab-caps 12/20/16 mg-hydrochlorothiazide 25 mg tablet metformin 500 mg tablet 500 mg PO DAILY #90 tab-caps 12/20/16 cephalexin 500 mg capsule 500 mg PO QID cellulitis 10 days 02/22/24 #40 caps Allergies Allergy/AdvReac Type Severity Reaction Status Date / Time venom-honey bee (bee venom Allergy Mild Other (See Verified 02/23/24 19:06 (honey bee)) Comment) metoprolol AdvReac constipatio Verified 02/23/24 19:06 n General Stated Complaint: Cellulitis LASHAY: 4 Exam Narrative Exam Narrative: Review of Systems: All systems reviewed & are unremarkable except as noted in HPI and below Well-developed, no acute distress Afebrile NCAT PERRL, normal conjunctiva RRR Unlabored respiratory effort Right lower extremity with 3 mm scab and some mild erythema surrounding it on the proximal anterior tibia, there is some mild circumferential lacy redness around the lower ankle on the lateral aspect of the ankle, there is a 10 x 10 area of bright red discoloration almost in a [place] on the lateral leg with a 3 x 3 area of purple central discoloration, this is blanching there is no induration or fluctuance appreciated, there is no calf tenderness, there is some mild swelling of the foot and lower leg noted Course Vital Signs Vital signs: Vital Signs Temperature 36.6 C 02/23/24 18:59 Pulse 90 02/23/24 18:59 Respiratory Rate 19 02/23/24 18:59 Blood Pressure 136/81 02/23/24 18:59 Pulse Oximetry 94 02/23/24 18:59 Temperature 36.6 C 02/23/24 18:59 Temperature Source Temporal Artery Scan 02/23/24 18:59 Pulse 90 02/23/24 18:59 Respiratory Rate 19 02/23/24 18:59 Blood Pressure 136/81 02/23/24 18:59 Blood Pressure Position Sitting 02/23/24 18:59 Pulse Oximetry 94 02/23/24 18:59 Oxygen Delivery Method Room Air 02/23/24 18:59 Oxygen Flow Rate 0 02/23/24 18:59 Pain Level 5 02/23/24 18:59 Lab/Test Results Lab/Test Results: Laboratory Tests Range/Units 02/23/24 20:15 WBC (4.4-10.8) 10^3/uL 11.03 H RBC (4.36-5.78) 10^6/uL 4.55 Hgb (13.5-17.5) g/dL 13.7 Hct (40.0-50.0) % 40.5 MCV (80-95) fL 89 MCH (27.0-33.0) pg 30.1 MCHC (32.0-36.0) % 33.8 RDW (11.8-14.1) % 11.5 L Plt Count (130-400) 10^3/uL 168 MPV (8.0-11.0) fL 9.6 Immature Gran % % 0.4 Neutrophils % % 74.2 Lymphocytes % % 12.5 Monocytes % % 12.0 Eosinophils % % 0.5 Basophils % % 0.4 Nucleated RBC % (0.0-0.3) % 0.0 Absolute Neutrophils (1.2-6.7) 10^3/uL 8.18 H Absolute Lymphocytes (1.2-3.4) 10^3/uL 1.38 Absolute Monocytes (0.1-0.8) 10^3/uL 1.32 H Absolute Eosinophils (0.0-0.7) 10^3/uL 0.06 Absolute Basophils (0.0-0.2) 10^3/uL 0.04 ESR (0-20) mm/hr 29 H VBG Lactate (0.6-1.4) mmol/L 1.2 Medical Decision Making Emergent evaluation of right lower extremity skin change. Initial differential includes cellulitis, DVT, necrotizing infection. The patient denies that he has diabetes. He states that he was previously on metformin, but he does not take that any longer. He reports that this area of concern on the lateral ankle was not present yesterday when he was evaluated. He was started on cephalexin and has had several doses but has had a fairly rapid and significant change in his examination. Will check lab work get x-ray to evaluate for gas in the tissue. I am unable to get an ultrasound at this time to evaluate for a DVT. Lab work reviewed. There is a noted elevation in his white blood cell count at 11 with a left shift. He has significant hyperglycemia at 496. ESR and CRP are elevated. Procalcitonin and lactic acid are within normal limits. I added on an A1c given his hyperglycemia and it is noted to be 12.3. Confirming a diagnosis of diabetes. Blood cultures have been ordered, IV antibiotics have been given. X-ray of the area was obtained and there does not appear to be any gas in the soft tissue. I have discussed with the hospitalist and will admit for cellulitis treatment and management and ultrasound tomorrow. 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 Sister No problems noted. Brother No problems noted. Social History Smoking/Tobacco Use Status: Never Smoking risk assessment performed?: Yes Alcohol Intake: current Alcohol Intake frequency: a few times a week Drug use: Never Substance use type: does not use Housing: house Do you feel safe at home: Yes Do you feel safe in your relationship?: Yes
[2024-02-23 20:45] LABS: ALT 30 U/L (16-63); AST 14 U/L (15-37); Albumin 3.3 g/dL (3.4-5.0); Alkaline Phosphatase 104 U/L (46-116); Anion Gap 6.9 mmol/L (3-11); BUN 21 mg/dL (7-18); Bilirubin, Total 0.65 mg/dL (0.2-1.0); C-Reactive Protein 10.76 mg/dL (<or=0.5); CO2 31.1 mmol/L (21.0-32.0); CREATININE 1.1 mg/dL (0.70-1.30); Chloride 97 mmol/L (98-107); Creatine Kinase 83 U/L (39-308); Glucose 496 mg/dL (74-106); Potassium 4.8 mmol/L (3.5-5.1); Sodium 135 mmol/L (136-145); Total Protein 7.6 g/dL (6.4-8.2)
[2024-02-23 21:05] LABS: Lab Add On Test DONE
[2024-02-23 21:15] LABS: Procalcitonin < 0.10 ng/mL
[2024-02-23] MEDS: VANCOMYCIN 1,500 MG in Normal Saline 250 ML 166.6666 MG IVPB (21:15)
[2024-02-23 21:35] LABS: Hemoglobin A1C 12.3 % (<5.7)
--- NOTE | 2024-02-23 21:46 | DI.VRAD_ITS ---
PROCEDURE INFORMATION: Exam: XR Right Tibia and Fibula Exam date and time: 02/23/2024 9:02 PM Age: 58 years old Clinical indication: Other: Leg infection TECHNIQUE: Imaging protocol: Radiologic exam of the right tibia and fibula. Views: 2 views. COMPARISON: No relevant prior studies available. FINDINGS: Bones/joints: Normal. Soft tissues: There is soft tissue swelling at the level of the lateral malleolus. There are dystrophic calcifications seen in the anterior soft tissues. IMPRESSION: Soft tissue swelling at the lateral malleolar level. Etiology uncertain. Dictated and Authenticated by: Sasha Smith MD. Ordering:[facility] Ana Shaikh MD
[2024-02-23 21:54] VITALS: BP 189/98; PULSE 86; RESP 17; TEMP 36.7; O2SAT 96
[2024-02-23] MEDS: Water,Injection,Sterile 10 ML VIAL (23:01)
[2024-02-23 23:02] VITALS: BP 175/84; PULSE 80; RESP 21; TEMP 36.7; O2SAT 94
--- NOTE | 2024-02-23 23:21 | HPE_ITS ---
Date of service: 02/23/24 Time of Service: 23:21 Assessment and Plan Assessment and plan (1) Cellulitis of right lower leg: Status: Acute Assessment and plan: He has a distinct area of erythema but it is so well-demarcated and with the intense central purpura it seems more like an autoimmune phenomenon. He does not seem systemically ill, no fever, mildly elevated white count, normal procalcitonin, ESR 29. It is possible this is the blossoming of a fulminant bacterial infection of the skin but it just does not seem likely. I do think this area will likely necrosis and turned into an ulcer. Given his size this could be related to venous stasis and or poorly controlled diabetes. Of note his hemoglobin A1c is 12.3%. Patient received a dose of vancomycin 1500 mg in the ED. Will keep him on the Keflex 500 mg 4 times daily. Blood cultures are pending. If there is a fluctuant area we can culture that. Will check an ultrasound in the a.m. to rule out venous occlusion. (2) Acute hyperglycemia: Status: Acute Assessment and plan: Blood sugar of 496 on admission. He had a diagnosis of diabetes type 2 in the past and clearly his blood sugars are poorly controlled at this time. Will place him on sliding scale insulin and check his blood sugars and try to drive his sugars down but he will need to be put back on diabetic controlling meds prior to discharge. (3) Obesity with body mass index greater than 30: Status: Acute Assessment and plan: BMI 33.8. Diabetic teaching and nutrition consult ordered. (4) Essential hypertension: Status: Acute Assessment and plan: Blood pressures running somewhat high here. Will resume his usual blood pressure medications. (5) Type 2 diabetes mellitus: Status: Acute Assessment and plan: Previous type II diabetic now with evidence of poor diabetic control. Hemoglobin A1c 12.3%. (6) Sleep apnea: Status: Acute Assessment and plan: History of sleep apnea. Will resume home CPAP if he brings it in. History of Present Illness History of Present Illness Chief Complaint: Right leg cellulitis/hyperglycemia Narrative: 58-year-old male seen yesterday for redness in his right leg. Started on Keflex 500 4 times daily. He returns today because of an area that has become intensely red with a central purple area on the lateral portion of his right lower leg. His noticed it and had him come to the emergency room immediately. This all started with an area of intense irritation on his right green that he apparently rubbed with his left heel intensely during the night. This actually abraded the skin on his green leaving a linear scab about 1 x 5 cm. A day or 2 later he developed this redness along the lateral portion of the lower right leg that has since turned into this 10 cm area of redness with central purpura. The concern is this could represent a focal area of cellulitis that may be forming an abscess. A plain film did not show any gas. Labs showed white count of 11,000, normal calcitonin, ESR 29. Blood cultures were obtained and he got a dose of vancomycin specifically to target MRSA. He is admitted to observation. Review of Systems Narrative: Normally feels healthy and well. He actually did not notice the area of redness until his pointed it out. He remembers having intense itching on the anterior right green that he rubbed with his left heel and he knows he had a scab there. He did not have fever or chills and did not feel systemically ill. He has been told he was a diabetic in the past but felt he did not need to take metformin any longer because his blood sugars were normal. He was unaware that her sugar was wildly out of control (496) he does not think he is a diabetic. He tends to get a little bit of swelling in either leg usually the left more than the right. He has never had clots. He has never had venous stasis ulcers. 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) Encounter for screening for other viral diseases (Acute) Medical History (Updated 02/23/24 @ 23:30 by Efren Tripp MD) Atrial fibrillation Splenomegaly (07/25/15) MILD-found on abd US 07/25/15 Diverticulosis of large intestine without hemorrhage (11/06/15) Noted on colonoscopy 10/09/15 Calculus of left kidney Hepatic steatosis (07/25/15) ABD US 07/25/15 HTN (hypertension) Adult BMI > 30 Nephrolithiasis L Hepatic steatosis Diverticulosis Surgical History Ureteroscopy, EHL, or Laser Lithotripsy (10/30/09) Dr Stoney Garcia ureteral stent Colonoscopy w/ Bx (10/09/15) Appendectomy (~2008) Family History Mother Essential hypertension Father Essential hypertension Atrial fibrillation Sister No problems noted. Sister No problems noted. Brother No problems noted. Social History Smoking/Tobacco Use Status: Never Smoking risk assessment performed?: Yes Alcohol Intake: current Alcohol Intake frequency: a few times a week Drug use: Never Substance use type: does not use Housing: house Do you feel safe at home: Yes Do you feel safe in your relationship?: Yes Meds Allergies and Home Medications Allergies Allergy/AdvReac Type Severity Reaction Status Date / Time venom-honey bee (bee venom Allergy Mild Other (See Verified 02/23/24 19:06 (honey bee)) Comment) metoprolol AdvReac constipatio Verified 02/23/24 19:06 n Home Medications ?Medication ?Instructions ?Recorded ?Confirmed ?Type aspirin 81 mg tablet,delayed 81 mg PO DAILY 12/19/15 02/23/24 History release (Aspir-) cholecalciferol (vitamin D3) 25 1,000 unit PO DAILY #90 tab-caps 12/20/16 02/23/24 Rx mcg (1,000 unit) tablet lisinopril 20 1 ea PO DAILY #90 tab-caps 12/20/16 02/23/24 Rx mg-hydrochlorothiazide 25 mg tablet metformin 500 mg tablet 500 mg PO DAILY #90 tab-caps 12/20/16 02/23/24 Rx cephalexin 500 mg capsule 500 mg PO QID cellulitis 10 days 02/22/24 02/23/24 Rx #40 caps Exam Narrative Exam Narrative: On exam he is a large man and has a tatianna complexion. He is in no distress and in good spirits. His breathing is completely clear on the right and left. His heart sounds are regular his abdomen is quite markedly obese but overall soft and nontender he has a deformed scar in his lower abdomen probably from previous laparotomy for ruptured appendix. This is all well-healed. In the right lower extremity has a well-defined area of erythema about 10 cm in diameter on the lower lateral portion of his ankle region there is central purpura about 4 to 5 cm in diameter and there does seem to be tight skin overlying what may be a very small fluid collection. He has excellent distal pulses of note he has a corn like structure between his first and second toes near the plantar aspect that may be a wart. There is no surrounding erythema it is nontender and he was not aware of it. Comparing the right to the left leg there is 2+ edema on the right and none on the left. There is hemosiderin deposits around the lateral edge of both the right and left foot. There is no other scars or evidence of prior venous stasis ulcers. Both lower extremities are well-perfused. Neurologically there is no focal deficits. Results Labs 02/23/24 20:15 02/23/24 20:15 Labs: Laboratory Results - last 24 hr 02/23/24 20:15 WBC 11.03 H RBC 4.55 Hgb 13.7 Hct 40.5 MCV 89 MCH 30.1 MCHC 33.8 RDW 11.5 L Plt Count 168 MPV 9.6 Immature Gran % 0.4 Neutrophils % 74.2 Lymphocytes % 12.5 Monocytes % 12.0 Eosinophils % 0.5 Basophils % 0.4 Nucleated RBC % 0.0 Absolute Neutrophils 8.18 H Absolute Lymphocytes 1.38 Absolute Monocytes 1.32 H Absolute Eosinophils 0.06 Absolute Basophils 0.04 ESR 29 H VBG Lactate 1.2 Sodium 135 L Potassium 4.8 Chloride 97 L Carbon Dioxide 31.1 Anion Gap 6.9 BUN 21 H Creatinine 1.1 Est GFR (CKD-EPI 2020) 78.30 Glucose 496 H Hemoglobin A1c 12.3 H Calcium 9.0 Total Bilirubin 0.65 AST 14 L ALT 30 Alkaline Phosphatase 104 Creatine Kinase 83 C-Reactive Protein 10.76 H Total Protein 7.6 Albumin 3.3 L Procalcitonin < 0.10 Add-On Test Request DONE Last Vital Signs Temp 36.7 C 02/23/24 23:02 Pulse 80 02/23/24 23:02 Resp 21 02/23/24 23:02 BP 175/84 H 02/23/24 23:02 Pulse Ox 94 02/23/24 23:02 Time Spent Time spent with Patient: 55-74 minutes Time was spent: preparing to see the patient(eg.review tests), obtaining and/or reviewing separately otained hiistory, ordering medications,tests, procedures, referring, communicating with other health manager intensive care unit, indepentently interpreting results and counseling the patient
[2024-02-23 23:24] VITALS: BP 158/84; PULSE 88; RESP 16; TEMP 37; O2SAT 97
[2024-02-23 23:40] VITALS: BP 158/84; PULSE 88; RESP 16; TEMP 37; O2SAT 97
--- NOTE | 2024-02-24 | DI.US_ITS ---
Exam(s) US LOWER EXTREMITY VENOUS RT EXAM: US LOWER EXTREMITY VENOUS RT CLINICAL HISTORY: cellulitis, not healing, with swelling. TECHNIQUE: Lower extremity venous ultrasound performed using grayscale, color-flow, and spectral Do ppler analysis. COMPARISON: CR,XR XR TIB/FIB RT from 02/23/2024 FINDINGS: The common femoral, femoral and popliteal veins demonstrate normal compressibility, augmentation, and color Doppler. The posterior tibial and peroneal veins are patent. No saphenous vein thrombosis or other superficial venous thrombosis is seen. No hematoma or Beck's cyst is seen. There is edema in the subcutaneous fat, greatest in the lateral ankle region. No drainable collection. IMPRESSION: Edema greatest at the ankle. No drainable collection. No evidence of DVT. DATA REPOSITORY:
--- NOTE | 2024-02-24 01:01 | W.PC.ACHO ---
Registration Status: Primary Language: Preferred Language: ED Information & Data Chief Complaint Cellulitis 02/23/24 20:45 Triage Note Pt has recent dx of 02/23/24 18:59 cellulitis in right lower leg yesterday. Has been taking Cephalexin. Was getting better today, now getting worse. More red and painful this evening and has developed a purple lesion in the center. Pt has been having increased swelling in right leg. Very tender, erythematous and hot. Distal CSMs intact. No weeping or exudate. Medical / Surgical History (Last Updated 02/23/24 @ 23:30 by Efren Tripp MD) Atrial fibrillation Splenomegaly (07/25/15) Diverticulosis of large intestine without hemorrhage (11/06/15) Calculus of left kidney Hepatic steatosis (07/25/15) HTN (hypertension) Adult BMI > 30 Nephrolithiasis Hepatic steatosis Diverticulosis (Last Reviewed 02/23/24 @ 20:41 by Johann Perez MD) Ureteroscopy, EHL, or Laser Lithotripsy (10/30/09) Colonoscopy w/ Bx (10/09/15) Appendectomy (~2008) Most Recent Vital Signs Temperature 37 C 02/23/24 23:40 Temperature Source Oral 02/23/24 21:54 Pulse 88 02/23/24 23:40 Pulse Rhythm Regular 02/23/24 23:24 Respiratory Rate 16 02/23/24 23:40 Respiratory Effort Normal, Non-Labored 02/23/24 23:24 Respiratory Depth Normal 02/23/24 23:24 Respiratory Pattern Normal 02/23/24 23:24 Blood Pressure 158/84 H 02/23/24 23:40 Blood Pressure Position Sitting 02/23/24 18:59 Pulse Oximetry 97 02/23/24 23:40 Oxygen Delivery Method Room Air 02/23/24 23:40 Oxygen Flow Rate 0 02/23/24 23:40 Pain Level 5 02/23/24 23:02 Allergies venom-honey bee (bee venom (honey bee)) Allergy (Mild, Verified 02/23/24 19:06) Other (See Comment) Localized swelling to area of bee sting per pt metoprolol Adverse Reaction (Verified 02/23/24 19:06) constipation IV IV Catheter Type [Right Saline Lock Antecubital] IV Catheter Gauge [Right 18 Antecubital] Diet Orders Category Date Time Status Diabetes Consistent CHO [DIET] Nutrition 02/24/24 Breakfast Active Diagnostics 02/24/24 02/23/24 Range/Units 05:35 20:15 WBC Pending 11.03 H (4.4-10.8) 10^3/uL RBC Pending 4.55 (4.36-5.78) 10^6/uL Hgb Pending 13.7 (13.5-17.5) g/dL Hct Pending 40.5 (40.0-50.0) % MCV Pending 89 (80-95) fL MCH Pending 30.1 (27.0-33.0) pg MCHC Pending 33.8 (32.0-36.0) % RDW Pending 11.5 L (11.8-14.1) % Plt Count Pending 168 (130-400) 10^3/uL MPV Pending 9.6 (8.0-11.0) fL Immature Gran % Pending 0.4 % Neutrophils % Pending 74.2 % Lymphocytes % Pending 12.5 % Monocytes % Pending 12.0 % Eosinophils % Pending 0.5 % Basophils % Pending 0.4 % Nucleated RBC % 0.0 (0.0-0.3) % Absolute Neutrophils Pending 8.18 H (1.2-6.7) 10^3/uL Absolute Lymphocytes Pending 1.38 (1.2-3.4) 10^3/uL Absolute Monocytes Pending 1.32 H (0.1-0.8) 10^3/uL Absolute Eosinophils Pending 0.06 (0.0-0.7) 10^3/uL Absolute Basophils Pending 0.04 (0.0-0.2) 10^3/uL ESR 29 H (0-20) mm/hr VBG Lactate 1.2 (0.6-1.4) mmol/L Sodium Pending 135 L (136-145) mmol/L Potassium Pending 4.8 (3.5-5.1) mmol/L Chloride Pending 97 L (98-107) mmol/L Carbon Dioxide Pending 31.1 (21.0-32.0) mmol/L Anion Gap Pending 6.9 (3-11) mmol/L BUN Pending 21 H (7-18) mg/dL Creatinine Pending 1.1 (0.70-1.30) mg/dL Est GFR (CKD-EPI 2020) Pending 78.30 (mL/min/1.73m2) Glucose Pending 496 H (74-106) mg/dL Hemoglobin A1c 12.3 H (<5.7) % Calcium Pending 9.0 (8.5-10.1) mg/dL Total Bilirubin 0.65 (0.2-1.0) mg/dL AST 14 L (15-37) U/L ALT 30 (16-63) U/L Alkaline Phosphatase 104 (46-116) U/L Creatine Kinase 83 (39-308) U/L C-Reactive Protein 10.76 H (<or=0.5) mg/dL Total Protein 7.6 (6.4-8.2) g/dL Albumin 3.3 L (3.4-5.0) g/dL Procalcitonin < 0.10 ng/mL Add-On Test Request DONE 02/23/24 20:50 Blood Culture - Pending Blood 02/23/24 20:43 Blood Culture - Pending Blood Intake and Output - 24 Hour Total 02/23/24 18:54 thru 02/24/24 00:10 Intake Total 260 Balance 260 Weight 112.945 kg Intake: IV 260 Other: Comment per pt Falls Risk Assessment History of Falls No History 02/23/24 23:24 Contributing Factors No Factors 02/23/24 23:24 Ambulatory Aids Independent 02/23/24 23:24 Tubes/Lines W/no contributing factors 02/23/24 23:24 Gait Evaluation No gait disturbance 02/23/24 23:24 Cognition No cognitive impairment 02/23/24 23:24 Fall Total Score 10 02/23/24 23:24 Level of Risk Standard/Low Risk 02/23/24 23:24 Problems (Last Updated 02/23/24 @ 23:30 by Efren Tripp MD) Sleep apnea (Acute) Type 2 diabetes mellitus (Acute) Obesity with body mass index greater than 30 (Acute) Essential hypertension (Acute 08/07/15) Acute hyperglycemia (Acute) Cellulitis of right lower leg (Acute) v v v v v v v v v Sending and/or Receiving Nurses: Please use comment section below to note any information pertinent to the patient hand-off not included above. Information / Comments: pt was just here for what appeared to be cellulitis on RLE, was prescribed keflex and sent home, appeared to clear up almost immediately. Today in the afternoon pt stated that it became way worse, more swollen and more red. scan showed no bone infection but soft tissue infection around the bone, leg is marked/outlined. recieved 1x vancomycin. hx: hyperglycemia, HTN VS bp 175/85 rr 21 LSC hrr 80 t 36.7 SPO2 94% on ra while sleeping 18g RAC voiding Report received from: CAMERON Werner from ED called at [id number]
[2024-02-24 06:42] LABS: Abs Immature Grans 0.05 10^3/uL (0.0-0.06); Absolute Basophil Count 0.04 10^3/uL (0.0-0.2); Absolute Eosinophil Count 0.07 10^3/uL (0.0-0.7); Absolute Lymphocyte Count 1.41 10^3/uL (1.2-3.4); Absolute Monocyte Count 1.11 10^3/uL (0.1-0.8); Absolute Neutrophil Count 6.17 10^3/uL (1.2-6.7); Basophils % 0.5 %; Eosinophils % 0.8 %; HCT 37.1 % (40.0-50.0); HGB 12.6 g/dL (13.5-17.5); Immature Grans % 0.6 %; Lymphocytes % 15.9 %; MCH 30.3 pg (27.0-33.0); MCV 89 fL (80-95); MPV 9.8 fL (8.0-11.0); Monocytes % 12.5 %; Neutrophils % 69.7 %; Platelet Count 139 10^3/uL (130-400); RBC 4.16 10^6/uL (4.36-5.78); RDW 11.5 % (11.8-14.1); RDW-SD 37.2 fL; WBC 8.85 10^3/uL (4.4-10.8)
[2024-02-24 07:29] LABS: Anion Gap 8.6 mmol/L (3-11); BUN 19 mg/dL (7-18); CO2 28.4 mmol/L (21.0-32.0); CREATININE 0.8 mg/dL (0.70-1.30); Calcium 8.7 mg/dL (8.5-10.1); Chloride 101 mmol/L (98-107); Estimated GFR 103.22 (mL/min/1.73m2); Glucose 329 mg/dL (74-106); Sodium 138 mmol/L (136-145)
[2024-02-24 07:48] VITALS: BP 147/80; PULSE 78; RESP 16; TEMP 36.5; O2SAT 99
[2024-02-24] MEDS: Cephalexin 500 MG CAP PO ×4 (07:51→19:55)
[2024-02-24] MEDS: Normal Saline Flush 10 ML SYR IVP ×2 (07:51→19:56)
[2024-02-24] MEDS: Insulin Aspart 300 UNITS/3 ML PEN SC ×4 (07:54→23:28)
--- NOTE | 2024-02-24 09:18 | PDOC.CMIN ---
Date of service: 02/24/24 Time of Service: 09:18 Care Management Initial Assmt Initial Assessment Reason for Hospitalization: cellulitis RLE Functional Status/Living Situation Patient Presentation: Jude was sitting up in bed visiting with his Marilou when CM met with him. He was pleasant in manner and agreeable to conversation. Jude and Marilou live in a single family home in [place]. They have 3 children all of whom are living independently in the community. Jude was admitted yesterday with cellulitis and hyperglycemia. He informed CM that he is already feeling better and that the swelling and erythema in his leg have improved. There was a considerable decrease in erythema based on the markings on his leg. Jude has a history of Type 2 Diabetes but has not been monitoring his glucose or taking any medication to control it. His blood glucose was 496 on admission and his Hemoglobin A1 C was 12.3. Today he met with Jasmeet from Nutrition services who applied a CGM and educated him in its use. His is also a diabetic and has been using a CGM for some time so verbalized that she can help. While hospitalized, he will continue receiving education regarding diabetes as well as insulin administration. Town of Residence: [place] Resides with: Spouse ( Marilou) Significant Other/Family: Local Employment Status: Employed ([employer]) Instrumental Activities of Daily Living (ADLs): Independent Medications Medication Management: No Issues/Barriers identified Advance Directives Advance Directives: Do you have an Advance Directive: N 11/11/23 08:57 AD On File at [employer] [facility] [employer] [facility]: N 11/11/23 08:57 Date Asked 02/23/24 02/23/24 19:05 AD Date Reviewed COLST On File at [facility] COLST Date Scanned Code Status Resuscitation Status Full Code Portal Pt does not currently have a portal and education provided: Yes Insurance Coverage/Financial Issues Insurance: [employer] Care Team Visit Care Team Role Provider Type None None Primary Care Provider NON-[employer] STAFF PHYSICIAN Pallavi Palma RDN, [facility] Other Providers [employer]OWER Marisol Shukla Other Providers [employer] Jasmeet Asher RDN Other Providers [employer]OWER Johann Perez MD Emergency Provider [facility] STAFF PHYSICIAN Efren Tripp MD Admit Provider [facility] [employer] STAFF PHYSICIAN Attending Provider Discharge Potential Discharge Needs: PCP F/U Appt Anticipated Barriers to Discharge: None Identified Patient/Family Education Needs: Review discharge instructions, discuss Ask Me Three Transportation: Private vehicle Plan: Anticipate Jude will be discharged home with no new services. He will follow up with his PCP and plan of care and transport with family. He may also continue to meet with the security business analyst post-discharge. CM will follow and continue to support discharge planning. Social Determinants of Health Screening Will the Patient Participate in the Screening?: Declined to provide Do you worry about having a steady place to live?: no In the past 12 months, have you had to go without electric, gas, oil or water in your home?: no Have you or anyone in your house had to go without enough food to eat?: no Has lack of transportation kept you from medical appointments or from doing things needed for daily living?: no Has anyone in your life made you feel unsafe or unsupported?: no How hard is it for you to pay for the very basics like food, housing, medical care, and heating? Would you say it is:: Not hard at all Do you want help finding or keeping work or a job?: I do not need or want help If for any reason you need help with day-to-day activities such as bathing, preparing meals, shopping, managing finances, etc., do you get the help you need?: I don?t need any help How often do you feel lonely or isolated from those around you?: Never Do you speak a language other than Latvian at home?: No Does the patient want assistance with any of the above?: No 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) Encounter for screening for other viral diseases (Acute) Medical History (Updated 02/23/24 @ 23:30 by Efren Tripp MD) Atrial fibrillation Splenomegaly (07/25/15) MILD-found on abd US 07/25/15 Diverticulosis of large intestine without hemorrhage (11/06/15) Noted on colonoscopy 10/09/15 Calculus of left kidney Hepatic steatosis (07/25/15) ABD US 07/25/15 HTN (hypertension) Adult BMI > 30 Nephrolithiasis L Hepatic steatosis Diverticulosis Surgical History Ureteroscopy, EHL, or Laser Lithotripsy (10/30/09) Dr Stoney Garcia ureteral stent Colonoscopy w/ Bx (10/09/15) Appendectomy (~2008) Family History Mother Essential hypertension Father Essential hypertension Atrial fibrillation Sister No problems noted. Sister No problems noted. Brother No problems noted. Social History Smoking/Tobacco Use Status: Never Smoking risk assessment performed?: Yes Alcohol Intake: current Alcohol Intake frequency: a few times a week Drug use: Never Substance use type: does not use Housing: house Do you feel safe at home: Yes Do you feel safe in your relationship?: Yes
[2024-02-24 11:05] VITALS: BP 169/88; PULSE 78; RESP 16; TEMP 36.5; O2SAT 99
--- NOTE | 2024-02-24 12:49 | CHAPLAIN ---
Jude was resting in bed when I visited this morning. 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 He explained a bit about what's going on with his leg. He said he's waiting now for test results and a plan. He seems to be comfortable being here. His brought him to the ED. To talked about what it's like for him to see the hospital from a patient perspective.
--- NOTE | 2024-02-24 14:22 | TELEFU_ITS ---
Date of service: 02/24/24 Time of Service: 14:00 Nutrition Note NOTE: received nutrition consult regarding diabetes mgt/education. Pt admitted and treated for cellulitis. Hgb A1c at 12.3 with glucose almost 500. spoke with jude and his and discussed the need to get back on more con sistent management schedule. Jude relays he hasn't really been managing his glucose at home in some time. I offered outpatient support with diet guidance. He was willing to work with me to help get his A1C down closer to target. Pt discharged on 10u insulin glargine with sliding scale corretion with novolog TID. Pt with no oral medications at this time for diabetes. Will follow in outpatient settting - Jude fitted with CGM on 02/23 and we plan to follow up to go over his report. Insulin may still be appropriate until further assessement, but SGLT2-i and and metformin can be considered again along with other orals once glucose is back to target and Jude may have other options to delay insulin therapy until later down the road if still indicated. Time Spent in Nutritional Counseling and Treatment: 15 min
[2024-02-24 15:34] VITALS: BP 169/94; PULSE 72; RESP 16; TEMP 36.7; O2SAT 96
--- NOTE | 2024-02-24 16:19 | W.PM.PROGNOT ---
Date of Service Date of service: 02/24/24 Time of Service: 16:19 Assessment and Plan Assessment and plan (1) Cellulitis of right lower leg: Status: Acute Assessment and plan: - Right lower extremity ultrasound without signs of abscess, or DVT -Given rapid improvement with ongoing p.o. Keflex, appears to be infectious, chronic totally appears that may be spider bite -Erythema significant improved as compared to admission -Will continue p.o. Keflex (2) Type 2 diabetes mellitus: Status: Acute Assessment and plan: -Previous type II diabetic now with evidence of poor diabetic control. -Blood sugars acutely elevated in the 400s on admission, now down to the low 30s with sliding scale -Will increase sliding scale severity to moderate -Admission Hemoglobin A1c 12.3% -Will continue to monitor patient's sliding scale needs throughout the day today 02/24/2024 and begin long-acting Lantus tomorrow morning based on the 24-hour sliding scale needs -Continue ongoing diabetes blood sugar check and insulin administration education (3) Obesity with body mass index greater than 30: Status: Acute Assessment and plan: -BMI 33.8. Diabetic teaching and nutrition consult ordered. (4) Essential hypertension: Status: Acute Assessment and plan: -continue home regimen (5) Sleep apnea: Status: Acute Assessment and plan: History of sleep apnea. Will resume home CPAP if he brings it in. Subjective Subjective Interval history since last seen: Patient states that he is feeling much better and is encouraged that his right lower extremity cellulitis and erythema is improved. He understands we will continue to monitor his insulin requirements for transitioning to long-acting insulin tomorrow as well as providing ongoing new diabetes education. Exam Narrative Exam Narrative: Well-appearing gentleman sitting up in bed in no acute distress, ANO x 4, heart regular rhythm, lungs clear to auscultation bilaterally, abdomen soft, nontender, nondistended, area of demarcated erythema drawn on admission significantly improved and receded, though there remains a circular area of erythema with central raising purpura Objective Last Vital Signs Temp 98.1 F 02/24/24 15:34 Pulse 72 02/24/24 15:34 Resp 16 02/24/24 15:34 BP 169/94 H 02/24/24 15:34 Pulse Ox 96 02/24/24 15:34 Laboratory Results - last 24 hr 02/23/24 02/24/24 20:15 06:15 WBC 11.03 H 8.85 RBC 4.55 4.16 L Hgb 13.7 12.6 L Hct 40.5 37.1 L MCV 89 89 MCH 30.1 30.3 MCHC 33.8 34.0 RDW 11.5 L 11.5 L Plt Count 168 139 MPV 9.6 9.8 Immature Gran % 0.4 0.6 Neutrophils % 74.2 69.7 Lymphocytes % 12.5 15.9 Monocytes % 12.0 12.5 Eosinophils % 0.5 0.8 Basophils % 0.4 0.5 Nucleated RBC % 0.0 0.0 Absolute Neutrophils 8.18 H 6.17 Absolute Lymphocytes 1.38 1.41 Absolute Monocytes 1.32 H 1.11 H Absolute Eosinophils 0.06 0.07 Absolute Basophils 0.04 0.04 ESR 29 H VBG Lactate 1.2 Sodium 135 L 138 Potassium 4.8 4.0 Chloride 97 L 101 Carbon Dioxide 31.1 28.4 Anion Gap 6.9 8.6 BUN 21 H 19 H Creatinine 1.1 0.8 Est GFR (CKD-EPI 2020) 78.30 103.22 Glucose 496 H 329 H Hemoglobin A1c 12.3 H Calcium 9.0 8.7 Total Bilirubin 0.65 AST 14 L ALT 30 Alkaline Phosphatase 104 Creatine Kinase 83 C-Reactive Protein 10.76 H Total Protein 7.6 Albumin 3.3 L Procalcitonin < 0.10 Add-On Test Request DONE PAWSS Have you Been Recently Intoxicated or Drunk Within the Last 30 days?: No Have you Ever Experienced Previous Episodes of Alcohol Withdrawal?: No Have you ever Experienced Withdrawal Seizures?: No Have you ever Experienced Delirium Tremens(DT)s?: No Have you ever undergone Alcohol Rehabilitation Treatment (i.e, inpt ot outpatient treatment programs)?: No Have you ever Experienced Blackouts?: No Have you ever Combined Alcohol with other Downers within the last 90 days?: No Have you ever Combined Alcohol with any other Substance of Abuse during the last 90 days?: No Positive Blood Alcohol level on Presentation? [PCS.BAL]: No Evidence of Increased Autonomic Activity (i.e. HR>120, tremor, sweating, agitation, nausea)?: No Result: 0 Time Spent with Patient Time Spent with Patient: >50 minutes Time was spent: preparing to see the patient(eg.review tests), obtaining and/or reviewing separately otained hiistory, ordering medications,tests, procedures, referring, communicating with other health healthcare manager, indepentently interpreting results, counseling the patient and care coordination
[2024-02-24 19:38] VITALS: BP 164/86; PULSE 76; RESP 18; TEMP 37.4; O2SAT 95
[2024-02-24] MEDS: Acetaminophen 325 MG TAB PO (19:55)
[2024-02-25 00:44] VITALS: BP 145/78; PULSE 67; RESP 16; TEMP 36.9; O2SAT 97
[2024-02-25 04:41] VITALS: BP 163/91; PULSE 73; RESP 18; TEMP 36.9; O2SAT 97
[2024-02-25] MEDS: Acetaminophen 325 MG TAB PO (06:12)
[2024-02-25 06:41] LABS: HCT 36.7 % (40.0-50.0); HGB 12.4 g/dL (13.5-17.5); MCH 30.1 pg (27.0-33.0); MCHC 33.8 % (32.0-36.0); MCV 89 fL (80-95); MPV 9.7 fL (8.0-11.0); Platelet Count 149 10^3/uL (130-400); RBC 4.12 10^6/uL (4.36-5.78); RDW 11.3 % (11.8-14.1); RDW-SD 36.4 fL; WBC 8.53 10^3/uL (4.4-10.8)
--- NOTE | 2024-02-25 06:44 | NUR.NOTE ---
Wound on RLE opened up last night draining serous fluid. Applied gauze and abd pad.
[2024-02-25 07:07] LABS: Anion Gap 7.8 mmol/L (3-11); BUN 18 mg/dL (7-18); CO2 27.2 mmol/L (21.0-32.0); CREATININE 0.8 mg/dL (0.70-1.30); Calcium 8.7 mg/dL (8.5-10.1); Chloride 101 mmol/L (98-107); Estimated GFR 103.22 (mL/min/1.73m2); Glucose 255 mg/dL (74-106); Sodium 136 mmol/L (136-145)
[2024-02-25 08:06] VITALS: BP 146/91; PULSE 74; RESP 16; TEMP 36.7; O2SAT 98
[2024-02-25] MEDS: Insulin Glargine 300 UNITS/3 ML PEN 10 UNITS SC (08:53)
[2024-02-25] MEDS: Cephalexin 500 MG CAP PO ×2 (08:53→12:26)
[2024-02-25] MEDS: Insulin Aspart 300 UNITS/3 ML PEN SC ×2 (08:53→12:26)
[2024-02-25] MEDS: Normal Saline Flush 10 ML SYR IVP (08:59)
--- NOTE | 2024-02-25 11:20 | PDOC.CMDIS ---
Date of service: 02/25/24 Time of Service: 11:20 LACE Index Scoring Tool Questions: Length of Stay (in days): 2 Was the patient admitted via the E.D.?: Yes Comorbidities: Diabetes w/o Complication E.D. Visits: 2 Answers: Total Score: 8 Risk of Readmission: Low Risk Care Management Discharge Plan Reason for Hospitalization: cellulitis and hyperglycemia Discharge Plan: Jude is discharged home today with new orders for insulin, no new services. He has been taught by nursing how to check his BS and how to administer his insulin. Jude's is also diabetic, and is available to help him. Jude has no local PCP. An appointment was unable to be made for him as the office is closed today. Jude was encouraged to call the [facility]. also gave her card to Jude and encouraged him to give a call on Tuesday if he is unable to get an appointment in a reasonable time frame. Jude will discharge home in a private vehicle with his . Patient/Family Education Needs: Review of discharge instructions, new insulin regime, activity, limitations and discuss ask me 3. SDOH Health Related Social Needs: No Data to Display
[2024-02-25 11:38] VITALS: BP 162/90; PULSE 72; RESP 16; TEMP 36.8; O2SAT 98
--- NOTE | 2024-02-25 12:54 | DSE_ITS ---
Date of service: 02/25/24 Time of Service: 12:54 DS: Diagnosis Discharge Diagnosis (1) Cellulitis of right lower leg: Status: Resolved (2) Type 2 diabetes mellitus: Status: Acute (3) Obesity with body mass index greater than 30: Status: Acute (4) Essential hypertension: Status: Acute (5) Sleep apnea: Status: Acute Discharge Plan Disposition Patient Disposition: Home Condition: Good Discharge Details Reason For Visit: Cellulitis right lower extremity Admit Date/Time: 02/23/24 21:38 Admit Provider: Efren Tripp Attending Provider: Efren Tripp Primary Care Provider: None,None Hospital Course Hospital Course: Patient initially presented with worsening right bilateral lower extremity cellulitis for which she was on p.o. Keflex. Keflex was continued but patient did have a right lower extremity ultrasound to confirm there is no abscess or DVT. Based on the appearance, it appeared to have been a spider bite and it did continue to improve with p.o. Keflex which will be continued at discharge. Additionally, patient had elevated blood glucose levels and was found to have hemoglobin A1c of about 12%. Which time patient was started on insulin ultimately will be discharged on a regimen of Lantus 10 units daily with medium dose sliding scale. He was provided diabetes education on how to monitor and administer insulin appropriately prior to discharge. Home Meds and New Rx's Prescriptions: New insulin aspart U-100 100 unit/mL (3 mL) Insulin Pen 0 - 9 unit subcut 0800,1200,1700,2200 Qty: 15 2RF Rx Instructions: glucose >140, units. 140-180 2 units. 191-220 4 units. 221-260 6 units. 261- 300 8 units. 301-340 10 units. 341-380 12 units. 381-420 14 units. 421-460 16 units. 461-500 18 units insulin glargine [Lantus Solostar U-100 Insulin] 100 unit/mL (3 mL) Insulin Pen 10 unit subcut DAILY Qty: 15 2RF Continued aspirin [Aspir-81] 81 MG tablet,delayed release (DR/EC) 81 mg PO DAILY cholecalciferol (vitamin D3) 1,000 UNIT tablet 1,000 unit PO DAILY Qty: 90 3RF Discontinued metformin 500 MG tablet 500 mg PO DAILY Qty: 90 3RF lisinopril-hydrochlorothiazide 1 EACH tablet 1 ea PO DAILY Qty: 90 3RF Discharge Instructions Instructions: Cellulitis (skin infection) in adults - Discharge instructions Stand Alone Forms: Nursing Discharge Form Referrals: None,None [Primary Care Provider] - (Please call [facility] to make a follow up appointment for within 1 to 2 weeks. ) Activity:: Activity as Tolerated Equipment/Supplies:: No Equipment Needed Diet:: As Tolerated Discharge Orders Discharge Orders: Discharge Order (Routine); Ordered 02/25/24 Ordered By: Bernardo Wadsworth Discharge Data Discharge Date/Time-TO BE ENTERED AT DEPARTURE: 02/25/24 14:06 DS: Summary Time Spent with Patient providing and/or coordinating discharge services: Greater than 30 minutes Status at Discharge Functional status at discharge: independent ambulation Overall status at discharge: patient is back to baseline Mental Status: mental status grossly normal Speech and Movement: speech and movement normal Mood: congruent mood Affect: normal affect Quality:SDOH Health Related Social Needs: No Data to Display Exam Narrative Exam Narrative: Well-appearing gentleman sitting up in bed in no acute distress, ANO x 4, heart regular rhythm, lungs clear to auscultation bilaterally, abdomen soft, nontender, nondistended, area of demarcated erythema drawn on admission significantly improved and receded, though there remains a circular area of erythema with central raising purpura Psych Mental Status: mental status grossly normal Speech and Movement: speech and movement normal Mood: congruent mood Affect: normal affect DS: Data Vitals/I&O Vitals and I&O: Vital Signs Temperature 98.2 F 02/25/24 11:38 Temperature Source Temporal Artery Scan 02/25/24 11:38 Pulse 72 02/25/24 11:38 Pulse Rhythm Regular 02/23/24 23:24 Respiratory Rate 16 02/25/24 11:38 Respiratory Effort Normal, Non-Labored 02/23/24 23:24 Respiratory Depth Normal 02/23/24 23:24 Respiratory Pattern Normal 02/23/24 23:24 Blood Pressure 162/90 H 02/25/24 11:38 Blood Pressure Position Sitting 02/23/24 18:59 Pulse Oximetry 98 02/25/24 11:38 Oxygen Delivery Method Room Air 02/25/24 11:38 Oxygen Flow Rate 0 02/25/24 11:38 Pain Level 0 02/25/24 11:38 Comment RN notified of bp 02/25/24 08:06 Intake & Output 02/24/24 02/25/24 02/25/24 17:59 05:59 17:59 Intake Total 980 / 980 460 / 1440 1600 / 1600 Balance 980 / 980 460 / 1440 1600 / 1600 Intake: IV Oral 980 / 980 440 / 1420 1600 / 1600 Other: Urine Color Yellow Urine Appearance Clear Comment Pt voided unmeasured unwitnessed amount into toilet independently. Data Completed and Pending Labs on day of discharge: Labs from last 24 hours 02/25/24 06:25 WBC 8.53 RBC 4.12 L Hgb 12.4 L Hct 36.7 L MCV 89 MCH 30.1 MCHC 33.8 RDW 11.3 L Plt Count 149 MPV 9.7 Sodium 136 Potassium 4.0 Chloride 101 Carbon Dioxide 27.2 Anion Gap 7.8 BUN 18 Creatinine 0.8 Est GFR (CKD-EPI 2020) 103.22 Glucose 255 H Calcium 8.7 Preliminary micro results at discharge 02/23/24 20:50 Blood Culture - Preliminary Blood Gram positive cocci 02/23/24 20:43 Blood Culture - Preliminary Blood NO GROWTH 24 HOURS PFSH All Active Problems (Updated 02/26/24 @ 00:05 by [employer]) Sleep apnea (Acute) Type 2 diabetes mellitus (Acute) Obesity with body mass index greater than 30 (Acute) Essential hypertension (Acute 08/07/15) Employee exposure to body fluids (Acute) Encounter for screening for other viral diseases (Acute) Medical History (Updated 02/26/24 @ 00:05 by [employer]) Atrial fibrillation Splenomegaly (07/25/15) MILD-found on abd US 07/25/15 Diverticulosis of large intestine without hemorrhage (11/06/15) Noted on colonoscopy 10/09/15 Calculus of left kidney Hepatic steatosis (07/25/15) ABD US 07/25/15 HTN (hypertension) Adult BMI > 30 Nephrolithiasis L Hepatic steatosis Diverticulosis Surgical History Ureteroscopy, EHL, or Laser Lithotripsy (10/30/09) Dr Stoney Garcia ureteral stent Colonoscopy w/ Bx (10/09/15) Appendectomy (~2008) Family History Mother Essential hypertension Father Essential hypertension Atrial fibrillation Sister No problems noted. Sister No problems noted. Brother No problems noted. Social History Smoking/Tobacco Use Status: Never Smoking risk assessment performed?: Yes Alcohol Intake: current Alcohol Intake frequency: a few times a week Drug use: Never Substance use type: does not use Housing: house Do you feel safe at home: Yes Do you feel safe in your relationship?: Yes Time Spent with Patient Time Spent with Patient: <45 minutes Time was spent: preparing to see the patient(eg.review tests), obtaining and/or reviewing separately otained hiistory, ordering medications,tests, procedures, referring, communicating with other health care support representative, indepentently interpreting results, counseling the patient and care coordination
== END 2024-02-25 14:06 | disposition home or self-care (01) ==
LOC: ER 22:04 → MS 02-24 08:43
PROVIDERS: Family Medicine; Admitting Provider Family Medicine; Emergency Provider Emergency Medicine; Visit Provider Family Medicine
DX: S80.861A Insect bite (nonvenomous), right lower leg, initial encounter (principal); L03.115 Cellulitis of right lower limb; E11.65 Type 2 diabetes mellitus with hyperglycemia; E66.9 Obesity, unspecified; Z79.4 Long term (current) use of insulin; I10 Essential (primary) hypertension; G47.30 Sleep apnea, unspecified; K57.30 Diverticulosis of large intestine without perforation or abscess without bleeding; K76.0 Fatty (change of) liver, not elsewhere classified; N20.0 Calculus of kidney; W57.XXXA Bitten or stung by nonvenomous insect and other nonvenomous arthropods, initial encounter; Z68.34 Body mass index [BMI] 34.0-34.9, adult
CPT/HCPCS: 00123; 36415; 80048; 80053; 82550; 84145; 85027; 85652; 87040; 87077; 96365; 96366; 99285; 73590; 83036; 83605; 85025; 86140; 93971; 99222; 99233; 99239; G0378; J1815; J3370

== ENCOUNTER 2024-05-18 09:18 | Outpatient (CLI) | payer OTHER, SELFPAY ==
[2024-05-18 07:43] LABS: Abs Immature Grans 0.02 10^3/uL (0.0-0.06); Absolute Basophil Count 0.03 10^3/uL (0.0-0.2); Absolute Eosinophil Count 0.18 10^3/uL (0.0-0.7); Absolute Lymphocyte Count 1.56 10^3/uL (1.2-3.4); Absolute Monocyte Count 0.54 10^3/uL (0.1-0.8); Absolute Neutrophil Count 3.59 10^3/uL (1.2-6.7); Basophils % 0.5 %; HCT 40.4 % (40.0-50.0); HGB 13.2 g/dL (13.5-17.5); Immature Grans % 0.3 %; Lymphocytes % 26.4 %; MCH 28.6 pg (27.0-33.0); MCHC 32.7 % (32.0-36.0); MCV 88 fL (80-95); MPV 9.9 fL (8.0-11.0); Monocytes % 9.1 %; Neutrophils % 60.7 %; Platelet Count 150 10^3/uL (130-400); RBC 4.61 10^6/uL (4.36-5.78); RDW 12.6 % (11.8-14.1); RDW-SD 39.9 fL; WBC 5.92 10^3/uL (4.4-10.8)
[2024-05-18 08:10] LABS: Hemoglobin A1C 7.2 % (<5.7)
[2024-05-18 08:47] LABS: ALT 57 U/L (16-63); AST 28 U/L (15-37); Albumin 3.8 g/dL (3.4-5.0); Alkaline Phosphatase 92 U/L (46-116); Anion Gap 6.6 mmol/L (3-11); BUN 22 mg/dL (7-18); Bilirubin, Total 0.3 mg/dL (0.2-1.0); CO2 27.4 mmol/L (21.0-32.0); CREATININE 0.9 mg/dL (0.70-1.30); Calcium 8.9 mg/dL (8.5-10.1); Calculated LDL 81 mg/dL (<100); Chloride 109 mmol/L (98-107); Cholesterol 141 mg/dL (<200); Estimated GFR 99.62 (mL/min/1.73m2); Glucose 114 mg/dL (74-106); HDL Cholesterol 43 mg/dL (>or=40); Potassium 4.8 mmol/L (3.5-5.1); Sodium 143 mmol/L (136-145); TSH (W/Ref FT4) 1.79 uIU/mL (0.36-3.74); Total Protein 7.1 g/dL (6.4-8.2); Triglyceride 87 mg/dL (<150)
[2024-05-18 17:58] LABS: PSA, Screening 1.6 ng/mL (<=3.5)
[2024-05-19 11:37] LABS: HIV-1/2 Ag & Ab Screen Negative (Negative)
[2024-05-21 09:20] LABS: Hepatitis C Ab w Rflx HCV PCR Negative (Negative)
[2024-05-21 12:07] LABS: HBs Antibody, Quant <3.1 mIU/mL (See Note); Hep B Surface Ab Negative (See Note); Hepatitis B Core Antibody Negative (Negative); Hepatitis B Surface Antigen Negative (Negative)
== END 2024-05-18 09:19 | disposition home or self-care (01) ==
LOC: LBO 09:18
PROVIDERS: PCP Nurse Practitioner Family; Visit Provider Nurse Practitioner Family
DX: E11.9 Type 2 diabetes mellitus without complications (principal); Z11.59 Encounter for screening for other viral diseases; Z11.4 Encounter for screening for human immunodeficiency virus [HIV]; Z12.5 Encounter for screening for malignant neoplasm of prostate
CPT/HCPCS: 36415; 80053; 80061; 84153; 86704; 86706; 86803; 87340; 87389; 83036; 84443; 85025

== ENCOUNTER 2024-10-15 09:38 | Outpatient (CLI) | payer OTHER, SELFPAY ==
--- NOTE | 2024-10-15 10:15 | DI.MRI_ITS ---
Exam(s) MR UPPER EXTREMITY LT WO EXAM: MR UPPER EXTREMITY LT WO CLINICAL HISTORY: ? left tricep tear,lt arm muscle weakness,m62.81 TECHNIQUE: Multiplanar multisequence MRI of the shoulder was performed. COMPARISON: No exams were available for comparison FINDINGS: Field of view of these submitted images is from the shoulder to the mid humerus level OSSEOUS::There is significant degenerative changes in the acromioclavicular joint. There is intraosseous edema on both sides this articulation and there are downgoing osteophytes and impingement upon the supraspinatus. GLENOHUMERAL JOINT: There are moderate degenerative changes in the glenohumeral joint. Moderate chondromalacia. Small joint effusion. Small osteophyte noted on the inferior articular surface of the humeral head. GLENOID LABRUM: Heterogeneous signal throughout consistent with probable chronic degenerative change and tearing of the labrum. ROTATOR CUFF MECHANISM: AC JOINT/ACROMIUM: . There is no evidence of os acromiale. Supraspinatus: Mild tendinitis. No high-grade tear. Infraspinatus: Intact. No evidence of tear nor muscle atrophy. Teres Minor: Intact. No evidence of tear nor muscle atrophy. Subscapularis/anterior cuff: Intact. No abnormal signal at the level of the multipennate insertional fibers. No significant tear nor atrophy. BICEPS TENDON: Exhibits normal position within the intertubercular groove. No evidence of tear. There is some fluid in the tendon sheath within the intertubercular groove. There are no loose intra-articular bodies within the tendon sheath. QUADRILATERAL SPACE: No evidence of mass in the region of the axillary nerve and dorsal circumflex humeral vessels. Visualized triceps muscle at this level appears unremarkable. IMPRESSION: 1. In the field of view of this study there is no evidence of tear of the proximal triceps, as per request. 2. There are degenerative changes in the acromioclavicular and glenohumeral joints as described above. There is a mild amount of increased fluid in the glenohumeral joint. There are no loose intra-articular bodies. 3. There is diffuse degenerative appearance and probable chronic tearing of the majority of the glenoid labrum. DATA REPOSITORY:
--- NOTE | 2024-10-15 16:29 | DI.VRAD_ITS ---
Addendum created by Efren Pope MD on 10/15/2024 4:38:44 PM EDT: ADDENDUM: IMPRESSION #7 should read as follows: 7. Moderate marrow edema about the acromioclavicular joint, could be degenerative, posttraumatic or inflammatory. Initial report created on 10/15/2024 4:29:35 PM EDT: PROCEDURE INFORMATION: Exam: MR Left Upper Extremity Other Than Joint Without Contrast, Humerus. Exam date and time: 10/15/2024 9:24 AM Age: 59 years old Clinical indication: Pain; Additional info: ? Upper left triceps tear vs other pathology TECHNIQUE: Imaging protocol: Magnetic resonance imaging of the left upper extremity other than joint without contrast. Exam focused on the humerus. COMPARISON: No relevant prior studies available. FINDINGS: Limitations: Only the proximal to mid aspect of the arm is included. Bones/joints: The acromioclavicular joint is with mild periarticular osteophyte formation. Moderate marrow edema about it could be degenerative, posttraumatic or inflammatory. The glenohumeral joint is with a very small effusion and moderate chondromalacia. There is mild osteophyte formation about it. No fracture is identified. The bone marrow of the humeral shaft is normal in signal, and the cortices are preserved. Heterogeneity of much of the glenoid labrum suggests degeneration and possibly chronic tearing. An 8 x 2 x 6 mm fluid intensity signal lesion posterior to the mid to upper aspect of the posterior labrum could be a paralabral cyst (images [id number], [id number]). Tendons: The partially evaluated rotator cuff is with mild areas of tendinopathy. Soft tissues: Very mild edema involves the lateral aspect of the deltoid muscle. The other visualized musculature, including the partially included triceps muscle heads, appears unremarkable. Lymph nodes: There are some mildly enlarged axillary lymph nodes measuring up to 1.5 cm short axis. IMPRESSION: 1. Very mild nonspecific edema involving the lateral aspect of the deltoid muscle, could be posttraumatic or related to myositis. The other visualized musculature, including the partially included triceps, appears unremarkable. 2. Degenerative changes as described. 3. Very small glenohumeral joint effusion. 4. 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 5. Mild rotator cuff tendinopathy, partially evaluated. 6. Mildly enlarged axillary lymph nodes measuring up to 1.5 cm short axis, nonspecific. Correlate clinically. Dictated and Authenticated by: Efren Pope MD. Orderin Venkata Morales MD
== END 2024-10-15 09:58 ==
LOC: DI 09:39
PROVIDERS: PCP Nurse Practitioner Family; Visit Provider Nurse Practitioner Family
DX: M62.81 Muscle weakness (generalized) (principal)
CPT/HCPCS: 73218

== ENCOUNTER → 2025-01-25 11:26 | Outpatient (CLI) | payer OTHER, SELFPAY ==
--- NOTE | 2025-01-25 10:13 | DI.RAD_ITS ---
Exam(s) XR KNEE RT 3V AP,LAT,CLEMENTE EXAM: XR KNEE RT 3V AP,LAT,CLEMENTE CLINICAL HISTORY: right knee stiffness, weakness M25.661. TECHNIQUE: 2D digital imaging was performed of the right knee. Three views obtained. AP, lateral and PA tunnel views were obtained. COMPARISON: CR,XR XR TIB/FIB RT from 02/23/2024 CR XR KNEE LT 3V AP,LAT,CLEMENTE from 04/17/2024 FINDINGS: BONES: No acute fracture is present. No bony destructive lesion is seen. JOINTS: The joint spaces are well maintained except for small osteophytes and the posterior patella. No joint effusion is seen. SOFT TISSUE: Atherosclerotic calcification is present. IMPRESSION: Minimal degenerative changes seen in the right knee. DATA REPOSITORY: RADIATION DOSE DELIVERED:
== END ==
LOC: DI 11:27
PROVIDERS: PCP Nurse Practitioner Family; Visit Provider Nurse Practitioner Family
DX: M25.661 Stiffness of right knee, not elsewhere classified (principal); M17.11 Unilateral primary osteoarthritis, right knee
CPT/HCPCS: 73562